=== PATIENT | male | born 1955 | race Caucasian/White ===

== ENCOUNTER → 2017-08-02 | Outpatient (CLI) | payer BC ==
[2017-08-02 19:22] LABS: BASOPHILS % (AUTO) 0 % (0-10); EOSINOPHILS # (AUTO) 0.3 10^3/uL (0.0-0.3); EOSINOPHILS % (AUTO) 5 % (0-10); LYMPHOCYTES # (AUTO) 2.3 X 10^3 (1.0-4.0); LYMPHOCYTES % (AUTO) 32 % (12-44); MEAN CORPUSCULAR HEMOGLOBIN 30 PG (25-34); MEAN CORPUSCULAR HGB CONC 35 G/DL (32-36); MEAN CORPUSCULAR VOLUME 87 FL (80-99); MEAN PLATELET VOLUME 9.8 FL (7.4-10.4); MONOCYTES # (AUTO) 0.7 X 10^3 (0.0-1.0); MONOCYTES % (AUTO) 10 % (0-12); NEUTROPHILS # (AUTO) 3.8 X 10^3 (1.8-7.8); NEUTROPHILS % (AUTO) 53 % (42-75); PLATELET COUNT 200 10^3/uL (130-400); RED BLOOD COUNT 4.86 10^6/uL (4.35-5.85); RED CELL DISTRIBUTION WIDTH 13.1 % (10.0-14.5); WHITE BLOOD COUNT 7.1 10^3/uL (4.3-11.0)
[2017-08-02 19:38] LABS: ALANINE AMINOTRANSFERASE 32 U/L (0-55); ALBUMIN 4.3 GM/DL (3.2-4.5); ANION GAP 10 MMOL/L (5-14); ASPARTATE AMINO TRANSFERASE 25 U/L (5-34); BILIRUBIN,TOTAL 0.3 MG/DL (0.1-1.0); BLOOD UREA NITROGEN 12 MG/DL (7-18); BUN/CREATININE RATIO 13; CALCIUM 9.2 MG/DL (8.5-10.1); CARBON DIOXIDE 26 MMOL/L (21-32); CHLORIDE 103 MMOL/L (98-107); CREATININE SERUM 0.96 MG/DL (0.60-1.30); GFR ESTIMATED > 60; GLUCOSE 105 MG/DL (70-105); POTASSIUM 3.8 MMOL/L (3.6-5.0); SODIUM 139 MMOL/L (135-145); TOTAL PROTEIN 7.4 GM/DL (6.4-8.2)
[2017-08-06 07:09] LABS: HIV AG AB SCREEN Non-Reactive (Non-Reactive)
== END ==
LOC: LAB 18:42
PROVIDERS: ATTEND Internal Medicine
DX: Z20.6 Contact with and (suspected) exposure to human immunodeficiency virus [HIV] (principal); Z20.828 Contact with and (suspected) exposure to other viral communicable diseases
CPT/HCPCS: 36415; 80053; 80074; 85025; 86703

== ENCOUNTER 2019-01-13 20:23 | Inpatient (IN) | payer BC ==
[~2019-01-13] VITALS: Ht 177.8 cm; Wt 112.0 kg
[2019-01-13] MEDS ORDERED: ASPIRIN 81 MG CHEW (CHILDREN'S ASA) PO ONE (20:30)
[2019-01-13 20:44] LABS: BASOPHILS % (AUTO) 1 % (0-10); EOSINOPHILS # (AUTO) 0.2 10^3/uL (0.0-0.3); EOSINOPHILS % (AUTO) 3 % (0-10); HEMATOCRIT 41 % (40-54); HEMOGLOBIN 14.5 G/DL (13.3-17.7); LYMPHOCYTES % (AUTO) 32 % (12-44); MEAN CORPUSCULAR HEMOGLOBIN 30 PG (25-34); MEAN CORPUSCULAR HGB CONC 35 G/DL (32-36); MEAN CORPUSCULAR VOLUME 86 FL (80-99); MEAN PLATELET VOLUME 9.7 FL (7.4-10.4); MONOCYTES # (AUTO) 0.5 X 10^3 (0.0-1.0); MONOCYTES % (AUTO) 8 % (0-12); NEUTROPHILS # (AUTO) 3.5 X 10^3 (1.8-7.8); NEUTROPHILS % (AUTO) 56 % (42-75); PLATELET COUNT 242 10^3/uL (130-400); RED CELL DISTRIBUTION WIDTH 13.5 % (10.0-14.5); WHITE BLOOD COUNT 6.3 10^3/uL (4.3-11.0)
--- NOTE | 2019-01-13 20:46 | Diagnostic Imaging Report ---
INDICATION: Chest pain COMPARISON STUDY: None FINDINGS: Frontal view of the chest demonstrates the lungs to be clear. The heart, mediastinum, pulmonary vascularity and visualized bony thorax are normal. IMPRESSION: Normal chest. Dictated by: Dictated on workstation # [id number]
--- NOTE | 2019-01-13 20:52 | ED Chest Pain ---
General Stated Complaint: CP Source: patient Exam Limitations: no limitations History of Present Illness Date Seen by Provider: Jan 13, 2019 Time Seen by Provider: 20:25 Initial Comments 63-year-old male who presents to the emergency room with complaints of left- sided substernal chest pain that started 1 hour prior to arrival. He did take 324mg baby aspirin at the onset of his chest pain. He reports she's had pain like this in the past and it reflux related. He is pain-free on arrival to the emergency room. He denies shortness of breath, nausea, vomiting. 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 (324 Baby ASA) Associated Symptoms: denies symptoms Allergies and Home Medications Allergies Coded Allergies: No Known Drug Allergies (Unverified , 01/13/19) Patient Home Medication List Home Medication List Reviewed: Yes Review of Systems Review of Systems Constitutional: see HPI; No chills, No fever Cardiovascular: See HPI, Chest Pain All Other Systems Reviewed Negative Unless Noted: Yes Past Cegvwpv-Lmvjbv-Gizcud Hx Past Med/Social Hx: Reviewed Nursing Past Med/Soc Hx Patient Social History Recent Foreign Travel: No Contact w/Someone Who Travel: No Family Medical History Reviewed Nursing Family Hx Physical Exam Vital Signs Vital Signs - First Documented 01/13/19 20:24 Temp 97.0 Pulse 90 Resp 20 B/P (MAP) 203/113 (143) Pulse Ox 97 O2 Delivery Room Air Capillary Refill : Height, Weight, BMI Height: '" Weight: lbs. oz. kg; BMI Method: General Appearance: No Apparent Distress, WD/WN HEENT: PERRL/EOMI, TMs Normal, Normal ENT Inspection, Pharynx Normal Neck: Full Range of Motion, Normal Inspection, Non Tender, Supple Respiratory: Chest Non Tender, Lungs Clear, Normal Breath Sounds, No Accessory Muscle Use, No Respiratory Distress Cardiovascular: Regular Rate, Rhythm, No Edema, No Gallop, No JVD, No Murmur, Normal Peripheral Pulses Gastrointestinal: Normal Bowel Sounds, No Organomegaly, No Pulsatile Mass, Non Tender Extremity: Normal Capillary Refill, No Pedal Edema Neurologic/Psychiatric: Alert, Oriented x3, Normal Mood/Affect Skin: Normal Color, Warm/Dry Progress/Results/Core Measures Results/Orders Lab Results Laboratory Tests Test 01/13/19 20:30 Range/Units White Blood Count 6.3 4.3-11.0 10^3/uL Red Blood Count 4.77 4.35-5.85 10^6/uL Hemoglobin 14.5 13.3-17.7 G/DL Hematocrit 41 40-54 % Mean Corpuscular Volume 86 80-99 FL Mean Corpuscular Hemoglobin 30 25-34 PG Mean Corpuscular Hemoglobin Concent 35 32-36 G/DL Red Cell Distribution Width 13.5 10.0-14.5 % Platelet Count 242 130-400 10^3/uL Mean Platelet Volume 9.7 7.4-10.4 FL Neutrophils (%) (Auto) 56 42-75 % Lymphocytes (%) (Auto) 32 12-44 % Monocytes (%) (Auto) 8 0-12 % Eosinophils (%) (Auto) 3 0-10 % Basophils (%) (Auto) 1 0-10 % Neutrophils # (Auto) 3.5 1.8-7.8 X 10^3 Lymphocytes # (Auto) 2.0 1.0-4.0 X 10^3 Monocytes # (Auto) 0.5 0.0-1.0 X 10^3 Eosinophils # (Auto) 0.2 0.0-0.3 10^3/uL Basophils # (Auto) 0.0 0.0-0.1 10^3/uL Prothrombin Time 12.6 12.2-14.7 SEC INR Comment 0.9 0.8-1.4 Activated Partial Thromboplast Time 20 L 24-35 SEC Sodium Level 141 135-145 MMOL/L Potassium Level 3.7 3.6-5.0 MMOL/L Chloride Level 106 98-107 MMOL/L Carbon Dioxide Level 22 21-32 MMOL/L Anion Gap 13 5-14 MMOL/L Blood Urea Nitrogen 15 7-18 MG/DL Creatinine 1.15 0.60-1.30 MG/DL Estimat Glomerular Filtration Rate > 60 BUN/Creatinine Ratio 13 Glucose Level 245 H 70-105 MG/DL Calcium Level 10.0 8.5-10.1 MG/DL Corrected Calcium 9.8 8.5-10.1 MG/DL Magnesium Level 2.3 1.8-2.4 MG/DL Total Bilirubin 0.3 0.1-1.0 MG/DL Aspartate Amino Transf (AST/SGOT) 33 5-34 U/L Alanine Aminotransferase (ALT/SGPT) 50 0-55 U/L Alkaline Phosphatase 49 40-136 U/L Myoglobin 39.7 10.0-92.0 NG/ML Troponin I 0.094 H <0.028 NG/ML B-Type Natriuretic Peptide 21.8 <100.0 PG/ML Total Protein 7.6 6.4-8.2 GM/DL Albumin 4.3 3.2-4.5 GM/DL My Orders Orders - JM BRAVO Cbc With Automated Diff (01/13/19 20:24) Magnesium (01/13/19 20:24) Chest 1 View, Ap/Pa Only (01/13/19:24) Ekg Tracing (01/13/19:24) Cardiac Profile 1 (01/13/19:) Comprehensive Metabolic Panel (01/13/19 20:24) Myoglobin Serum (01/13/19 20:24) Protime With Inr (01/13/19:24) Partial Thromboplastin Time (01/13/19:24) O2 (01/13/19 20:24) Monitor-Rhythm Ecg Trace Only (01/13/19 20:24) Lipid Panel (01/14/19 06:00) Ed Iv/Invasive Line Start (01/13/19 20:24) BNP (01/13/19 20:24) Aspirin Chewable Tablet (Baby Aspirin Ch (01/13/19 20:30) Lidocaine 2% Viscous 15 Ml (Xylocaine Vi (01/13/19 21:00) Antacid Suspension (Mylanta Suspension (01/13/19 21:00) Metoprolol Succinate (Xl) Tab (Toprol Xl (01/13/19 21:30) Clopidogrel Tablet (Plavix Tablet) (01/13/19 21:30) Enoxaparin Injection (Lovenox Injection) (01/13/19 22:00) Medications Given in ED Current Medications Medications Dose Ordered Sig/Charan Route Start Time Stop Time Status Last Admin Dose Admin Al Hydrox/Mg Hydrox/Simethicone 30 ml ONCE ONCE PO 01/13/19 21:00 01/13/19 21:01 DC 01/13/19 21:04 30 ML Clopidogrel Bisulfate 300 mg ONCE ONCE PO 01/13/19 21:30 01/13/19 21:31 DC 01/13/19 21:47 300 MG Lidocaine HCl 15 ml ONCE ONCE PO 01/13/19 21:00 01/13/19 21:01 DC 01/13/19 21:04 15 ML Metoprolol Succinate 200 mg ONCE ONCE PO 01/13/19 21:30 01/13/19 21:31 DC 01/13/19 21:47 200 MG Vital Signs/I&O 01/13/19 20:24 Temp 97.0 Pulse 90 Resp 20 B/P (MAP) 203/113 (143) Pulse Ox 97 O2 Delivery Room Air Progress Progress Note : Time: 21:13 Progress Note I have seen and evaluated the patient. I have informed him of laboratory and imaging findings and discussed these findings with Dr. Gutierrez at this time. He recommends admitting the patient to cardiac stepdown and giving Lovenox 1 mg/kg every 12 over dose. Plavix 300 now and 75 mg daily. Toprol-XL 200 mg by mouth now and 50 mg daily. Nothing by mouth status after breakfast tomorrow morning. 2152. Dr. Goodwin agrees to accept the patient to his services with a consult cardiology. Initial ECG Impression Date: Jan 13, 2019 Initial ECG Impression Time: 20:25 Initial ECG Rate: 93 Initial ECG Rhythm: Normal Sinus Initial ECG Intervals: Normal Initial ECG Intervals Dr. Vargas has reviewed the EKG and agrees with above. Initial ECG Comparisson: No Previous ECG Available Diagnostic Imaging Diagonstic Imaging: Xray Plain Films/CT/US/NM/MRI: chest Comments [facility] [place], [place] NAME: KIMBERLY EPPERSON [facility] REC#: [id number] PT STATUS: REG ER : 1955 PHYSICIAN: JM BRAVO ADMIT DATE: 01/13/19/ER Draft Date of Exam:01/13/19 CHEST 1 VIEW, AP/PA ONLY INDICATION: Chest pain COMPARISON STUDY: None FINDINGS: Frontal view of the chest demonstrates the lungs to be clear. The heart, mediastinum, pulmonary vascularity and visualized bony thorax are normal. IMPRESSION: Normal chest. Dictated on workstation # [id number] Dict: 01/13/192041 Trans: 01/13/192045 ABA [id number] Interpreted by: CHRISS LE MD Electronically signed by: Reviewed: Reviewed by Me Departure Communication (Admissions) Time/Spoke to Admitting Phy: 21:53 Christa Time/Spoke to Consulting Phy: 21:13 Dr. Gutierrez Impression Primary Impression: Non-STEMI (non-ST elevated myocardial infarction) Additional Impression: Chest pain Disposition: ADMITTED INPATIENT Condition: Stable/Unchanged Admissions Decision to Admit Reason: Admit from ER (General) Decision to Admit/Date: Jan 13, 2019 Time/Decision to Admit Time: 21:52 Departure-Patient Inst. Referrals: DERICK TA DO (PCP) Primary Care Physician SHARON TA DNP (Family) Primary Care Physician JM BRAVO Jan 13, 2019 20:52
[2019-01-13 20:56] LABS: INR 0.9 (0.8-1.4); PROTHROMBIN TIME PATIENT 12.6 SEC (12.2-14.7)
[2019-01-13] MEDS ORDERED: LIDOCAINE 2% VISCOUS 15 ML UDC PO ONE (21:00)
[2019-01-13] MEDS ORDERED: ANTACID SUSP 30 ML UDC (MYLANTA) PO ONE (21:00)
[2019-01-13 21:05] LABS: ALANINE AMINOTRANSFERASE 50 U/L (0-55); ALBUMIN 4.3 GM/DL (3.2-4.5); ALKALINE PHOSPHATASE 49 U/L (40-136); BILIRUBIN,TOTAL 0.3 MG/DL (0.1-1.0); BUN/CREATININE RATIO 13; CARBON DIOXIDE 22 MMOL/L (21-32); CHLORIDE 106 MMOL/L (98-107); CREATININE SERUM 1.15 MG/DL (0.60-1.30); GFR ESTIMATED > 60; GLUCOSE 245 MG/DL (70-105); MAGNESIUM 2.3 MG/DL (1.8-2.4); POTASSIUM 3.7 MMOL/L (3.6-5.0); SODIUM 141 MMOL/L (135-145); TOTAL PROTEIN 7.6 GM/DL (6.4-8.2)
--- NOTE | 2019-01-13 21:18 | NUR ---
report given to BLANCA Hilton
--- NOTE | 2019-01-13 21:20 | NUR ---
REPORT RECIEVED FROM BLANCA LOERA
[2019-01-13] MEDS ORDERED: meTOprolol SUCCINATE 100 MG (TOPROL XL) TAB PO ONE (21:30)
[2019-01-13] MEDS ORDERED: CLOPIDOGREL 300 MG (PLAVIX) TABLET PO ONE (21:30)
[2019-01-13] MEDS ORDERED: ENOXAPARIN 60 MG/0.6 ML (LOVENOX) SYR SC ONE (22:00)
[2019-01-13 23:00] VITALS: BP_SYST 147; BP_SYST 158; BP_DIAS 100; BP_DIAS 88
[2019-01-13 23:15] VITALS: BP 143/109
[2019-01-13] MEDS ORDERED: morphine INJ 4 MG/ML 1 ML (VIAL/SYRINGE) IV PRN (23:15)
[2019-01-13] MEDS ORDERED: NITROGLYCERIN 0.4 MG SL TABS BTL 25'S SL PRN (23:15)
[2019-01-13] MEDS ORDERED: ONDANSETRON 4 MG/2 ML (SDV) Z0FRAN IV PRN (23:15)
[2019-01-13] MEDS: ENOXAPARIN 60 MG/0.6 ML (LOVENOX) SYR SC SCH (23:22)
[2019-01-13 23:30] VITALS: BP 154/89
[2019-01-13 23:45] VITALS: BP 152/86
[2019-01-14] VITALS (13 sets, daily range): BP systolic 139–165; BP diastolic 80–106
[2019-01-14 02:51] LABS: BASOPHILS % (AUTO) 1 % (0-10); EOSINOPHILS # (AUTO) 0.1 10^3/uL (0.0-0.3); EOSINOPHILS % (AUTO) 2 % (0-10); HEMATOCRIT 39 % (40-54); HEMOGLOBIN 13.5 G/DL (13.3-17.7); LYMPHOCYTES # (AUTO) 2.9 X 10^3 (1.0-4.0); LYMPHOCYTES % (AUTO) 45 % (12-44); MEAN CORPUSCULAR HEMOGLOBIN 31 PG (25-34); MEAN CORPUSCULAR HGB CONC 35 G/DL (32-36); MEAN CORPUSCULAR VOLUME 87 FL (80-99); MEAN PLATELET VOLUME 9.7 FL (7.4-10.4); MONOCYTES # (AUTO) 0.6 X 10^3 (0.0-1.0); MONOCYTES % (AUTO) 9 % (0-12); NEUTROPHILS # (AUTO) 2.8 X 10^3 (1.8-7.8); NEUTROPHILS % (AUTO) 44 % (42-75); PLATELET COUNT 227 10^3/uL (130-400); RED CELL DISTRIBUTION WIDTH 13.5 % (10.0-14.5); WHITE BLOOD COUNT 6.4 10^3/uL (4.3-11.0)
[2019-01-14 03:11] LABS: ALANINE AMINOTRANSFERASE 44 U/L (0-55); ALKALINE PHOSPHATASE 46 U/L (40-136); BILIRUBIN,TOTAL 0.3 MG/DL (0.1-1.0); BUN/CREATININE RATIO 15; CALCIUM 9.8 MG/DL (8.5-10.1); CARBON DIOXIDE 24 MMOL/L (21-32); CHLORIDE 106 MMOL/L (98-107); CHOLESTEROL 208 MG/DL (< 200); CREATININE SERUM 0.98 MG/DL (0.60-1.30); GFR ESTIMATED > 60; GLUCOSE 174 MG/DL (70-105); HDL CHOLESTEROL 32 MG/DL (40-60); POTASSIUM 3.9 MMOL/L (3.6-5.0); SODIUM 140 MMOL/L (135-145); TOTAL PROTEIN 6.9 GM/DL (6.4-8.2); TRIGLYCERIDES 493 MG/DL (<150); VLDL CHOLESTEROL 99 MG/DL (5-40)
[2019-01-14] MEDS ORDERED: MIDAZOLAM 5 MG/5 ML (VERSED) VIAL ONE (07:48)
[2019-01-14] MEDS ORDERED: NS IV 1000 ML 1,000 ML IV STA (07:48)
[2019-01-14] MEDS ORDERED: NS IV 1000 ML 0 ML ONE (07:48)
[2019-01-14] MEDS ORDERED: LIDOCAINE 1% INJ 20 ML 20 ML VIAL ONE ×2 (07:48)
[2019-01-14] MEDS ORDERED: HEParin 1000 UNIT/ML (10ML VIAL) FOR BOLUS ONE ×2 (07:48)
[2019-01-14] MEDS ORDERED: fentaNYL INJECTION 100 MCG/2 ML AMP ONE (07:48)
[2019-01-14] MEDS ORDERED: NS IV 1000 ML 2,000 ML ONE (07:49)
--- NOTE | 2019-01-14 07:53 | Consultation-Cardiology ---
HPI-Cardiology Cardiology Consultation Date of Consultation 01/14/19 Date of Admission Time Seen by Provider: 07:49 Indication: chest pain HPI 63 years old gentleman with history of diabetes mellitus, strong family history of heart disease, started having chest pain about a week ago waxing and waning, yesterday reported that the pain became more significant, had retrosternal pain radiating to the left side of his chest, took aspirin and came to the emergency room by the time arrived to the emergency room he was chest pain-free. Continue to be chest pain-free. Had elevation in troponin upon my evaluation he reported some increasing shortness of breath on exertion. No palpitation, no syncope or near syncopal episodes. No claudications. Home Medications & Allergies Allergies: Coded Allergies: No Known Drug Allergies (Unverified , 01/13/19) Home Medication List Reviewed: Yes FLJ-Mvrdme-Gzzuab Hx Patient Social History Marital Status: Employed/Student: employed Alcohol Use: Rarely Uses Smoking Status: Never a Smoker Recent Foreign Travel: No Recent Infectious Disease Expo: No Past Medical History past medical history as described below Family Medical History Family History: Cardiovascular disease 19 MOTHER, , Age:76, Onset:60 years & older FH: COPD (chronic obstructive pulmonary disease) 19 FATHER, , Age:78, Onset:60 years & older 19 MOTHER, , Age:76, Onset:60 years & older Review of Systems Constitutional: no symptoms reported, see HPI EENTM: see HPI, no symptoms reported Respiratory: see HPI; No cough; dyspnea on exertion; No hemoptysis, No orthopnea, No phlegm, No short of breath, No stridor, No wheezing, No other Cardiovascular: see HPI, chest pain; No edema, No Hx of Intervention, No palpitations, No syncope, No vascular heart diseas, No other Gastrointestinal: no symptoms reported, see HPI Genitourinary: no symptoms reported, see HPI Musculoskeletal: no symptoms reported, see HPI Skin: no symptoms reported, see HPI Psychiatric/Neurological: No Symptoms Reported, See HPI Reviewed Test Results Reviewed Test Results Lab Laboratory Tests Test 01/13/19 20:30 01/14/19 02:35 Range/Units White Blood Count 6.3 6.4 4.3-11.0 10^3/uL Red Blood Count 4.77 4.43 4.35-5.85 10^6/uL Hemoglobin 14.5 13.5 13.3-17.7 G/DL Hematocrit 41 39 L 40-54 % Mean Corpuscular Volume 86 87 80-99 FL Mean Corpuscular Hemoglobin 30 31 25-34 PG Mean Corpuscular Hemoglobin Concent 35 35 32-36 G/DL Red Cell Distribution Width 13.5 13.5 10.0-14.5 % Platelet Count 242 227 130-400 10^3/uL Mean Platelet Volume 9.7 9.7 7.4-10.4 FL Neutrophils (%) (Auto) 56 44 42-75 % Lymphocytes (%) (Auto) 32 45 H 12-44 % Monocytes (%) (Auto) 8 9 0-12 % Eosinophils (%) (Auto) 3 2 0-10 % Basophils (%) (Auto) 1 1 0-10 % Neutrophils # (Auto) 3.5 2.8 1.8-7.8 X 10^3 Lymphocytes # (Auto) 2.0 2.9 1.0-4.0 X 10^3 Monocytes # (Auto) 0.5 0.6 0.0-1.0 X 10^3 Eosinophils # (Auto) 0.2 0.1 0.0-0.3 10^3/uL Basophils # (Auto) 0.0 0.0 0.0-0.1 10^3/uL Prothrombin Time 12.6 12.2-14.7 SEC INR Comment 0.9 0.8-1.4 Activated Partial Thromboplast Time 20 L 24-35 SEC Sodium Level 141 140 135-145 MMOL/L Potassium Level 3.7 3.9 3.6-5.0 MMOL/L Chloride Level 106 106 98-107 MMOL/L Carbon Dioxide Level 22 24 21-32 MMOL/L Anion Gap 13 10 5-14 MMOL/L Blood Urea Nitrogen 15 15 7-18 MG/DL Creatinine 1.15 0.98 0.60-1.30 MG/DL Estimat Glomerular Filtration Rate > 60 > 60 BUN/Creatinine Ratio 13 15 Glucose Level 245 H 174 H 70-105 MG/DL Calcium Level 10.0 9.8 8.5-10.1 MG/DL Corrected Calcium 9.8 9.8 8.5-10.1 MG/DL Magnesium Level 2.3 1.8-2.4 MG/DL Total Bilirubin 0.3 0.3 0.1-1.0 MG/DL Aspartate Amino Transf (AST/SGOT) 33 27 5-34 U/L Alanine Aminotransferase (ALT/SGPT) 50 44 0-55 U/L Alkaline Phosphatase 49 46 40-136 U/L Myoglobin 39.7 10.0-92.0 NG/ML Troponin I 0.094 H 0.140 H <0.028 NG/ML B-Type Natriuretic Peptide 21.8 <100.0 PG/ML Total Protein 7.6 6.9 6.4-8.2 GM/DL Albumin 4.3 4.0 3.2-4.5 GM/DL Triglycerides Level 493 H <150 MG/DL Cholesterol Level 208 H < 200 MG/DL LDL Cholesterol Direct 130 H 1-129 MG/DL VLDL Cholesterol 99 H 5-40 MG/DL HDL Cholesterol 32 L 40-60 MG/DL Physical Exam Vital Signs Vital Signs - First Documented 01/13/19 20:24 Temp 97.0 Pulse 90 Resp 20 B/P (MAP) 203/113 (143) Pulse Ox 97 O2 Delivery Room Air Capillary Refill : Less Than 3 Seconds Height, Weight, BMI Height: 5'10.00" Weight: 247lbs. 0.0oz. 112.777859ne; 35.5 BMI Method:Stated General Appearance: No Apparent Distress, WD/WN Eyes: Bilateral Eye Normal Inspection, Bilateral Eye PERRL, Bilateral Eye EOMI HEENT: PERRL/EOMI, TMs Normal, Normal ENT Inspection, Pharynx Normal Neck: Full Range of Motion, Normal Inspection, Non Tender, Supple, Carotid Bruit Respiratory: Chest Non Tender, Lungs Clear, Normal Breath Sounds, No Accessory Muscle Use, No Respiratory Distress Cardiovascular: Regular Rate, Rhythm, No Edema, No Gallop, No JVD, No Murmur, Normal Peripheral Pulses Gastrointestinal: Normal Bowel Sounds, No Organomegaly, No Pulsatile Mass, Non Tender, Soft Back: Normal Inspection, No CVA Tenderness, No Vertebral Tenderness Extremity: Normal Capillary Refill, Normal Inspection, Normal Range of Motion, Non Tender, No Calf Tenderness, No Pedal Edema Neurologic/Psychiatric: Alert, Oriented x3, No Motor/Sensory Deficits, Normal Mood/Affect Skin: Normal Color, Warm/Dry Lymphatic: No Adenopathy A/P-Cardiology Admission Diagnosis Non-ST elevation myocardial infarction Dyspnea on exertion Hyperlipidemia Diabetes mellitus Assessment/Plan Unstable angina/non-ST elevation myocardial infarction, currently chest pain- free, had elevation in troponin level. Planning to proceed with cardiac catheterization possible PTCA Shortness of breath, angina equivalent, has been having worsening dyspnea over the past week. Continue to monitor Hyperlipidemia, patient will be starting on statin after intervention Diabetes mellitus, started on Victoza, managed by primary care physician Strong family history of heart disease Obesity, BMI 35, we discussed weight loss and exercise Clinical Quality Measures AMI/AHF: ASA po Prior to arrival: Yes (324 Baby ASA) DVT/VTE Risk/Contraindication: Risk Factor Score Per Nursin RFS Level Per Nursing on Admit: 3=High CHYNA PEACE MD Jan 14, 2019 07:53
--- NOTE | 2019-01-14 07:53 | Cardiac Procedure Note-CS/ASA ---
Pre-Procedure Note Pre-Op Procedure Note H&P Reviewed The H&P was reviewed, patient examined and no changes noted. Date H&P Reviewed: Jan 14, 2019 Time H&P Reviewed: 07:53 Conscious Sedation Pre-Proced Time 07:53 ASA Score 3 For ASA 3 and 4: Consider anesthesia and medical clearance. Also, for patients with a history of failed moderate sedation consider anesthesia. Airway Lungs Heart ASA score ASA 1: a normal healthy patient ASA 2: a patient with a mild systemic disease (mid diabetes, controlled hypertension, obesity x ASA 3: a patient with a severe systemic disease that limits activity (angina , COPD, prior Myocardial infarction) ASA 4: a patient with an incapacitating disease that is a constant threat to life (CHF, renal failure) ASA 5: a moribund patient not expected to survive 24 hrs. (ruptured aneurysm) ASA 6: a declared brain- patient whose organs are being harvested. For emergent operations, add the letter E after the classification Mallampati Classification Grade 3 Sedation Plan Analgesia, Amnesia, Plan communicated to team members, Discussed options with patient/fam, Discussed risks with patient/fam The patient is an appropriate candidate to undergo the planned procedure, sedation, and anesthesia. The patient immediately re-assessed prior to indication. CHYNA PEACE MD Jan 14, 2019 07:53
[2019-01-14] MEDS ORDERED: CLOPIDOGREL 75 MG (PLAVIX) TABLET PO SCH (09:00)
[2019-01-14] MEDS ORDERED: meTOproloL SUCCINATE 50 MG (TOPROL XL) TAB PO SCH (09:00)
--- NOTE | 2019-01-14 09:06 | Cardiac Cath Report ---
Cardiac Cath Report Physician (s)/Computer System Validation Specialist (s) Physician CHYNA PEACE MD Pre-Procedure Diagnosis Pre-Procedure Diagnosis: non-ST elevation myocardial infarction Post-Procedure Note Procedure Start Date: Jan 14, 2019 Name of Procedure: left heart catheterization Left ventriculogram Aortic arch angiogram Findings/Procedure Note PROCEDURE NOTE: After explaining the procedure to the patient, all pros and cons were explained , all questions were answered. The patient signed the consent and then he was placed on the cardiac catheterization laboratory. Groin was prepped SL fashion local anesthesia was used. Sheath placed in the right femoral artery. Gonzalo right and left catheter were used to access the coronary system. Pigtail was used to access the left ventricular cavity. Left ventriculogram was done Aortic arch angiogram was done At the end of the procedure the sheath was removed. Closure device was used FINDINGS: Hemodynamics LV 131/18, end-diastolic pressure of 18 Aorta 132/75 mean of 101 ANATOMY: Left Main is free of obstructive disease Left Anterior Descending has mild ectasia proximally with slow flow in the LAD Left Circumflex has ectasia proximally with 40-50 percent stenosis at the midportion, slow flow Right Coronory Artery has diffuse ectasia with slow flow in the right coronary system, small vessel disease LV Gram was done showing normal left ventricular size and systolic function estimated ejection fraction 60 percent Aorta evaluation done to evaluate the aortic arch, I had some difficulties advancing the wire through the arch, evaluation showed normal aortic arch, no dissection or aneurysm, no ectasia, origin of the innominate artery, left carotid and left subclavian artery showed some tortuosity with no significant obstructive disease CONCLUSION: 1. Diffuse coronary ectasia more pronounced in the right coronary system, slow flow diffusely due to small vessel disease 2. 40-50 percent mid to distal circumflex artery stenosis nonobstructive disease 3. Normal left ventricular size and systolic function estimated ejection fraction 60 percent 4. Normal aortic arch and great vessels of the neck DISCUSSION AND RECOMMENDATION: I will maximize medical therapy and evaluate tolerance and response Anesthesia Type: Conscious Sedation Estimated blood loss (mL): 15 ml Contrast Amount: 62 ml Total Radiation Dose: 862 mGy Post-Procedure Diagnosis Post-operative diagnosis: Non-ST elevation myocardial infarction Unstable angina Coronary artery disease Hyperlipidemia CHYNA PEACE MD Jan 14, 2019 09:06
[2019-01-14] MEDS ORDERED: NS IV 1000 ML 1,000 ML IV SCH (09:07)
[2019-01-14] MEDS ORDERED: PATIENT MAY USE OWN MEDS, ALL PO SCH (09:15)
[2019-01-14] MEDS ORDERED: LISD40CA3 PO (09:19)
[2019-01-14] MEDS ORDERED: ALBU2.5V4 NEB (09:19)
[2019-01-14] MEDS ORDERED: RT-ALBUINH INH (09:19)
[2019-01-14] MEDS ORDERED: OMEP20TA33 PO (09:26)
[2019-01-14] MEDS ORDERED: EPHE1TAB PO (09:26)
[2019-01-14] MEDS ORDERED: LIRA0.6P SQ (09:26)
--- NOTE | 2019-01-14 10:53 | Short Stay Summary-Hospitalist ---
History of Present Illness HPI/Chief Complaint Chief complaint: Chest Pain HPI: This is a 63yoWM clinic pt of Dr. Ortiz who presents with escalating chest pain at high risk for coronary artery disease so he was placed in observation, underwent cardiac catheterization by Dr. Campo today and that revealed slowed coronary vessel blood flow but only small vessel disease. I did note few risk factors for PREETHI and he's never had a sleep study so that was counseled to do as an outpatient. Source: patient, family Exam Limitations: no limitations Date Seen 01/14/19 Time Seen by a Provider: 10:00 Attending Physician Chris Goodwin MD PCP Ricardo Ortiz DO Referring Physician Date of Admission Jan 13, 2019 at 21:54 Home Medications & Allergies Home Medications Reviewed patient Home Medication Reconciliation performed by pharmacy medication reconciliations wireless field technician and/or nursing. Patients Allergies have been reviewed. 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) Alcohol Use: Rarely Uses Smoking Status: Never a Smoker Recent Foreign Travel: No Contact w/other who traveled: No Recent Infectious Disease Expo: No Past Medical History Gastrointestinal: Gastroesophageal Reflux Endocrine: Diabetes, Non-Insulin dep Family History Reviewed Nursing Family Hx Cardiovascular disease 19 MOTHER, , Age:76, Onset:60 years & older FH: COPD (chronic obstructive pulmonary disease) 19 FATHER, , Age:78, Onset:60 years & older 19 MOTHER, , Age:76, Onset:60 years & older Review of Systems Constitutional: see HPI EENTM: no symptoms reported Respiratory: no symptoms reported Cardiovascular: chest pain Gastrointestinal: no symptoms reported Genitourinary: no symptoms reported Musculoskeletal: no symptoms reported Skin: no symptoms reported Psychiatric/Neurological: No Symptoms Reported All Other Systems Reviewed Negative Unless Noted: Yes Physical Exam Physical Exam Vital Signs Vital Signs - First Documented Capillary Refill : Less Than 3 Seconds Height, Weight, BMI Height: 5'10.00" Weight: 247lbs. 0.0oz. [id number]; 35.5 BMI Method:Stated General Appearance: No Apparent Distress, WD/WN Eyes: Bilateral Eye Normal Inspection, Bilateral Eye PERRL, Bilateral Eye EOMI HEENT: PERRL/EOMI, TMs Normal, Normal ENT Inspection, Pharynx Normal Neck: Full Range of Motion, Normal Inspection, Non Tender, Supple, Carotid Bruit Respiratory: Chest Non Tender, Lungs Clear, Normal Breath Sounds, No Accessory Muscle Use, No Respiratory Distress Cardiovascular: Regular Rate, Rhythm, No Edema, No Gallop, No JVD, No Murmur, Normal Peripheral Pulses Gastrointestinal: Normal Bowel Sounds, No Organomegaly, No Pulsatile Mass, Non Tender, Soft Back: Normal Inspection, No CVA Tenderness, No Vertebral Tenderness Extremity: Normal Capillary Refill, Normal Inspection, Normal Range of Motion, Non Tender, No Calf Tenderness, No Pedal Edema Neurologic/Psychiatric: Alert, Oriented x3, No Motor/Sensory Deficits, Normal Mood/Affect Skin: Normal Color, Warm/Dry Lymphatic: No Adenopathy Results Results/Procedures Labs Laboratory Tests 01/13/19 20:30 01/14/19 02:35 Patient resulted labs reviewed. Short Stay Diagnosis Discharge Diagnosis-Short Stay Admission Diagnosis Chest pain HTN Presumed PREETHI DM GERD Final Discharge Diagnosis Chest pain HTN Presumed PREETHI DM GERD Conclusion Plan Plan: Cardiology is appreciated Diagnosis/Problems Diagnosis/Problems (1) Chest pain Status: Acute Qualifiers: Qualified Codes: R07.2 - Precordial pain (2) Small vessel coronary artery disease Status: Chronic (3) S/P cardiac cath Status: Acute (4) GERD (gastroesophageal reflux disease) Status: Chronic Qualifiers: Qualified Codes: K21.9 - Gastro-esophageal reflux disease without esophagitis (5) PREETHI (obstructive sleep apnea) Status: Chronic (6) Diabetes Status: Chronic Qualifiers: Qualified Codes: E11.9 - Type 2 diabetes mellitus without complications Clinical Quality Measures AMI/AHF: ASA po Prior to arrival: Yes (324 Baby ASA) DVT/VTE Risk/Contraindication: Risk Factor Score Per Nursin RFS Level Per Nursing on Admit: 3=High MORENA LUNDY DO Jan 14, 2019 10:53
[2019-01-14] MEDS ORDERED: ATOR80TA76 PO (11:45)
[2019-01-14] MEDS ORDERED: ASPI-983 PO (11:45)
[2019-01-14] MEDS ORDERED: OMG1KC PO (11:45)
[2019-01-14] MEDS ORDERED: METO-387 PO (11:45)
--- NOTE | 2019-01-14 11:47 | Discharge Inst-Post CATH ---
Discharge Inst-CATH/EP Post Cardiac Cath/EP D/C Inst Follow Up/Plan Appointment with Dr. Tyson's office in 2-4 weeks CARDIAC CATH DISCHARGE INSTRUCTIONS *Hold Metformin for 48 hours post heart cath. ACTIVITY * Go Home directly and rest. * Limit activity of the leg (or wrist if it was used) for 7 days including aerobics, swimming, jogging, bicycling, etc. * Restrict stair-climbing for 7 days if possible, if not, climb up with your non -cath leg, then bring together on the same step. * Avoid lifting, pushing, pulling or excessive movement of the affected extremity for 7 days. * Customary sexual activity may be resumed after 2 days-use caution not to use a position that strains or causes pain to the affected extremity. * No driving for 24 hours. * NO SMOKING. * Avoid straining for bowel movements for 7 days. * Gentle walking on level ground is allowed. * Returning to work will depend on the type of procedure and the results. Your doctor will discuss this with you. CALL YOUR DOCTOR FOR ANY OF THE FOLLOWING: *If bleeding from the puncture site occurs- Apply gentle pressure to site with clean cloth and call your doctor or EMS. * If a knot or lump forms under the skin, increases in size, or causes pain. * If bruising appears to be worsening or moving further down your leg instead of disappearing. * Temperature above 101 F. CARE OF YOUR GROIN INCISION; * Bruising or purple discoloration of the skin near the puncture site is common. * You may shower only, no bathtub bathing for 5 days. Be careful to avoid slipping as your leg may feel stiff. * If a closure device was used on your femoral artery, please see the attached guide regarding care of the device and your leg. * Leave the dressing on, until removed by office staff. CARE OF YOUR WRIST INCISION; * Bruising or purple discoloration of the skin near the puncture site is common. * You may shower. * DO NOT submerge wrist. * Leave dressing on, until removed by office staff.. CHYNA TYSON MD Jan 14, 2019 11:47
[2019-01-14] MEDS: ENOXAPARIN 60 MG/0.6 ML (LOVENOX) SYR SC SCH (12:30)
[2019-01-14] MEDS ORDERED: OMEGA 3 (FISH OIL) 1000 MG CAP PO SCH (17:00)
[2019-01-14] MEDS ORDERED: ATORVASTATIN 80 MG (LIPITOR) TABLET PO SCH (21:00)
[2019-01-15] MEDS ORDERED: PANTOPRAZOLE 40 MG (PROTONIX) TAB PO SCH (09:00)
[2019-01-15] MEDS ORDERED: ASPIRIN E.C. 81 MG (ECOTRIN) TAB PO SCH (09:00)
--- NOTE | 2019-01-19 08:22 | Physician Query Clarification ---
PQ-Conflicting Diagnosis Admission/Discharge Admission Date: Jan 13, 2019 at 21:54 Discharge Date: Jan 14, 2019 at 13:30 The medical record reflects the following clinical scenario: History/Risk Factors: Substernal chest pain, SOB, family hx of CAD Clinical Findings: Troponin .094 Treatment: heart cath Question: Do you agree with the impression of the NSTEMI per Dr. Tyson. Please document a response below. PHYSICIAN RESPONSE Do you agree w/Consulting Dx?: Yes In responding to this query, please exercise your independent professional judgment. The purpose of this communication is to more accurately reflect the complexity of your patients condition. The fact that a question is asked does not imply that any particular answer is desired or expected. Thank you for your timely response to this clarification. Requestors name: [ ] Phone # [ ] THIS PHYSICIAN QUERY FORM IS A PERMANENT PART OF THE MEDICAL RECORD MARIANO PAZ Jan 19, 2019 08:22 MORENA LUNDY DO Jan 19, 2019 08:49
== END 2019-01-14 13:30 | disposition home or self-care (01) | DRG 282 ==
LOC: EDUNIT# 20:23 → ER 20:23 → ICU 21:54
PROVIDERS: ADMIT Internal Medicine; ATTEND Internal Medicine
PROC: 4A023N7 Measurement of Cardiac Sampling and Pressure, Left Heart, Percutaneous Approach (ICD-10-PCS; principal; 2019-01-14)
PROC: B2111ZZ Fluoroscopy of Multiple Coronary Arteries using Low Osmolar Contrast (ICD-10-PCS; 2019-01-14)
PROC: B2151ZZ Fluoroscopy of Left Heart using Low Osmolar Contrast (ICD-10-PCS; 2019-01-14)
PROC: B3101ZZ Fluoroscopy of Thoracic Aorta using Low Osmolar Contrast (ICD-10-PCS; 2019-01-14)
DX: I21.4 Non-ST elevation (NSTEMI) myocardial infarction (principal); I25.110 Atherosclerotic heart disease of native coronary artery with unstable angina pectoris; I25.41 Coronary artery aneurysm; E11.9 Type 2 diabetes mellitus without complications; Z82.49 Family history of ischemic heart disease and other diseases of the circulatory system; E78.5 Hyperlipidemia, unspecified; E66.9 Obesity, unspecified; Z68.35 Body mass index [BMI] 35.0-35.9, adult; K21.9 Gastro-esophageal reflux disease without esophagitis; G47.33 Obstructive sleep apnea (adult) (pediatric)
CPT/HCPCS: 36221; 36415; 71045; 80053; 80061; 83735; 83874; 83880; 84484; 85025; 85610; 85730; 93005; 93041; 93458; 96372

== ENCOUNTER 2021-10-13 11:19 | Outpatient (CLI) | payer OTHER ==
[~2021-10-13] VITALS: Ht 177.8 cm; Wt 100.0 kg
[2021-10-13 11:00] VITALS: BP 122/74
[~2021-10-13 11:19] MED LIST: ALBU2.5V4 NEB; ASPI-1238 PO; ATOR80TA76 PO; EPHE1TAB PO; LIRA0.6P SQ; LISD40CA3 PO; MTP25TSR PO; OMEP20TA33 PO; OMG1KC PO; RT-ALBUINH INH
[2021-10-13] MEDS ORDERED: ACETAMINOPHEN 500 MG TAB (TYLENOL) PO PRN (12:00)
[2021-10-13] MEDS ORDERED: BAMLANIVIMAB 700 MG/ETESEVIMAB 1,400 MG IN NS IV ONE ×3 (12:00)
[2021-10-13] MEDS ORDERED: ONDANSETRON 4 MG/2 ML (SDV) Z0FRAN IV PRN (12:00)
[2021-10-13] MEDS ORDERED: EPINEPHrine INJECTION 1 MG/ML AMP IM PRN (12:00)
[2021-10-13] MEDS ORDERED: diphenhydrAMINE 50 MG/ML INJ (BENADRYL) IV PRN (12:00)
[2021-10-13 13:02] VITALS: BP 113/66
== END 2021-10-13 13:02 ==
LOC: INFUSION 11:19
PROVIDERS: ATTEND Nurse Practitioner Family
DX: U07.1 COVID-19 (principal)

== ENCOUNTER → 2022-01-22 | Outpatient (CLI) | payer OTHER ==
[2022-01-22 15:06] LABS: BASOPHILS % (AUTO) 0 % (0-10); EOSINOPHILS % (AUTO) 0 % (0-10); HEMATOCRIT 46 % (40-54); HEMOGLOBIN 15.3 g/dL (13.3-17.7); LYMPHOCYTES # (AUTO) 0.8 10^3/uL (1.0-4.0); LYMPHOCYTES % (AUTO) 16 % (12-44); MEAN CORPUSCULAR HEMOGLOBIN 29 pg (25-34); MEAN CORPUSCULAR HGB CONC 33 g/dL (32-36); MEAN CORPUSCULAR VOLUME 89 fL (80-99); MONOCYTES # (AUTO) 0.4 10^3/uL (0.0-1.0); MONOCYTES % (AUTO) 8 % (0-12); NEUTROPHILS # (AUTO) 3.8 10^3/uL (1.8-7.8); NEUTROPHILS % (AUTO) 76 % (42-75); PLATELET COUNT 165 10^3/uL (130-400); WHITE BLOOD COUNT 5.1 10^3/uL (4.3-11.0)
--- NOTE | 2022-01-22 15:11 | Diagnostic Imaging Report ---
Indication: Cough. Time of Exam: 3:02 PM Correlation is made with prior chest from 01/13/2019. Heart size is normal. Patient does have airspace infiltrate in the left upper lobe consistent with pneumonia. Right lung is clear. No effusion or pneumothorax is identified. IMPRESSION: Left upper lobe pneumonia. Report given to LEATHA June at 3:11 PM 01/22/2022/yadira Dictated by: Dictated on workstation # [id number]
[2022-01-22 15:15] LABS: ALBUMIN 4.3 GM/DL (3.2-4.5); POTASSIUM 4.1 MMOL/L (3.6-5.0)
[2022-01-22 15:17] LABS: CALCIUM 9.6 MG/DL (8.5-10.1)
[2022-01-22 15:18] LABS: TOTAL PROTEIN 7.8 GM/DL (6.4-8.2)
[2022-01-22 15:20] LABS: BILIRUBIN,TOTAL 0.8 MG/DL (0.1-1.0)
[2022-01-22 15:22] LABS: CREATININE SERUM 1.1 MG/DL (0.60-1.30)
== END ==
LOC: RAD 14:35
PROVIDERS: ATTEND Nurse Practitioner Family
DX: J15.9 Unspecified bacterial pneumonia (principal)
CPT/HCPCS: 36415; 71046; 80053; 85025

== ENCOUNTER 2022-10-03 08:45 | Outpatient (CLI) | payer OTHER ==
[~2022-10-03] VITALS: Ht 162.6 cm; Wt 104.5 kg
[~2022-10-03 08:45] MED LIST changes: +ALBU8.5H6 INH; -RT-ALBUINH INH
[2022-10-09] MEDS ORDERED: ATOR40TA70 PO (13:03)
[2022-10-09] MEDS ORDERED: LOSA50TA63 PO (13:03)
[2022-10-09] MEDS ORDERED: DEXL60CA PO (13:03)
[2022-10-09] MEDS ORDERED: DOXY100C5 PO (13:03)
[2022-10-09] MEDS ORDERED: TIRZ7.5P SQ (13:03)
[2022-10-09] MEDS ORDERED: DAPA10TA PO (13:03)
== END 2022-10-10 10:11 | disposition home or self-care (01) ==
LOC: PREOP 08:45
PROVIDERS: ATTEND Specialist
DX: Z01.818 Encounter for other preprocedural examination (principal)

== ENCOUNTER 2022-10-12 09:35 | Day surgery (SDC) | payer OTHER ==
[~2022-10-12] VITALS: Ht 162.6 cm; Wt 104.5 kg
[~2022-10-12 09:35] MED LIST changes: +ATOR40TA70 PO; +DAPA10TA PO; +DEXL60CA PO; +DOXY100C5 PO; +LOSA50TA63 PO; +TIRZ7.5P SQ
[2022-10-12] MEDS: TETRACAINE 0.5% OPHTH SOLN 4 ML BTL (SINGLE DOSE ONLY) OU PRN ×4 (09:55→10:13)
[2022-10-12] MEDS ORDERED: POVIDONE (BETADINE) OPHTH SOLN 5% 30 ML OP ONE (10:00)
[2022-10-12] MEDS ORDERED: TIMOLOL 0.5% (CATARACTS) 0.3 ML BTL OU PRN (10:00)
[2022-10-12] MEDS ORDERED: MOXIFLOXACIN OPHTH SOLN 5 MG/ML 0.3 ML SYRINGE OP ONE (10:00)
[2022-10-12] MEDS: TROPICAMIDE 1% OPH SOLN (MYDRIACYL) 15 ML BTL OP SCH ×3 (10:02→10:13)
[2022-10-12] MEDS: PHENYLEPHRINE 10% OPHTH (NEO-SYN) 5 ML BTL OU SCH ×3 (10:02→10:13)
[2022-10-12 10:05] VITALS: BP 141/85
--- NOTE | 2022-10-12 10:41 | Ophthalmologist Pre-Op Note ---
Pre-Operative Progress Note H&P Reviewed The H&P was reviewed, patient examined and no changes noted. Date H&P Reviewed: Oct 12, 2022 Time H&P Reviewed: 10:40 Pre-Op Dx Cataract, Left Eye HALEY NUNEZ MD Oct 12, 2022 10:40
[2022-10-12] MEDS ORDERED: MIDAZOLAM 2 MG/2 ML (VERSED) VIAL ONE (10:46)
--- NOTE | 2022-10-12 10:59 | Ophthalmology Operative Report ---
Cataract removal/placement IOL PREOPERATIVE DIAGNOSIS: Cataract Left Eye POSTOPERATIVE DIAGNOSIS: Cataract Left Eye PROCEDURE: Cataract removal and placement of posterior chamber implant, left eye SURGEON: Desean Nunez ANESTHESIA: Topical with sedation COMPLICATIONS: None ESTIMATED BLOOD LOSS: Minimal DESCRIPTION OF PROCEDURE: After proper informed consent was obtained, the patient, a 67 male, was taken to the Operating Room and the left eye was anesthetized with tetracaine. The left eye was then prepped and draped in the usual manner. A wire lid speculum was placed. A paracentesis was made at the left hand position. Preservative free lidocaine was injected into the anterior chamber followed by viscoelastic. A clear corneal incision was made in the temporal position. A capsulorrhexis was preformed and the central nuclear and cortical material were removed. The posterior capsule was polished and an Theodore 18.5 [id number] was placed into the capsular bag. The residual viscoelastic was aspirated and balanced saline solution was injected into the anterior chamber. Moxifloxacin was injected into the anterior chamber. The wound was checked and found to be water tight. The patient tolerated the procedure well without complications. DESEAN NUNEZ MD Oct 12, 2022 10:59
[2022-10-12 11:03] VITALS: BP 144/77
[2022-10-12] MEDS ORDERED: acetaZOLAMIDE ER 500 MG CAP (DIAMOX SEQUELS) PO ONE (11:30)
--- NOTE | 2022-10-12 14:02 | Anesthesia-General Post-Op ---
MAC Patient Condition Mental Status/LOC: Same as Preop Cardiovascular: Satisfactory Nausea/Vomiting: Absent Respiratory: Satisfactory Pain: Controlled Complications: Absent Post Op Complications Complications None Follow Up Care/Instructions Patient Instructions None needed. Anesthesiology Discharge Order Discharge Order Patient was doing well after the procedure with no complaints, stable vital signs, no apparent adverse anesthesia problems. No complications reported per nursing. SIMONE HUMPHRIES DO Oct 12, 2022 14:02
== END 2022-10-12 11:08 | disposition home or self-care (01) ==
LOC: SDC 09:35
PROVIDERS: ATTEND Specialist
DX: E11.36 Type 2 diabetes mellitus with diabetic cataract (principal); H25.9 Unspecified age-related cataract; Z79.84 Long term (current) use of oral hypoglycemic drugs
CPT/HCPCS: 66984; V2632

== ENCOUNTER 2023-08-09 17:44 | Observation (INO) | payer MEDICARE, OTHER ==
[~2023-08-09] VITALS: Ht 175.3 cm; Wt 101.1 kg
[2023-08-09 17:58] LABS: BASOPHILS # (AUTO) 0.1 10^3/uL (0.0-0.1); BASOPHILS % (AUTO) 1 % (0-10); EOSINOPHILS # (AUTO) 0.1 10^3/uL (0.0-0.3); EOSINOPHILS % (AUTO) 1 % (0-10); HEMATOCRIT 45 % (40-54); HEMOGLOBIN 15.2 g/dL (13.3-17.7); LYMPHOCYTES # (AUTO) 2.1 10^3/uL (1.0-4.0); LYMPHOCYTES % (AUTO) 23 % (12-44); MEAN CORPUSCULAR HEMOGLOBIN 31 pg (25-34); MEAN CORPUSCULAR HGB CONC 34 g/dL (32-36); MEAN CORPUSCULAR VOLUME 90 fL (80-99); MEAN PLATELET VOLUME 9.6 fL (9.0-12.2); MONOCYTES # (AUTO) 0.6 10^3/uL (0.0-1.0); MONOCYTES % (AUTO) 7 % (0-12); NEUTROPHILS # (AUTO) 6.1 10^3/uL (1.8-7.8); NEUTROPHILS % (AUTO) 68 % (42-75); PLATELET COUNT 199 10^3/uL (130-400)
[2023-08-09] MEDS ORDERED: NITROGLYCERIN 2% OINT 1 GM UNIT DOSE PACKET ONE (17:58)
[2023-08-09] MEDS ORDERED: NITROGLYCERIN 0.4 MG SL TABLETS BTL 25'S SL PRN ×2 (18:00→21:15)
[2023-08-09] MEDS ORDERED: NITROGLYCERIN 2% OINT 1 GM UNIT DOSE PACKET TOP ONE (18:00)
[2023-08-09] MEDS ORDERED: ASPIRIN 81 MG CHEWABLE TABLET PO ONE (18:00)
--- NOTE | 2023-08-09 18:00 | ED Chest Pain ---
General Chief Complaint: Chest Pain Stated Complaint: CHEST PAIN/LEFT ARM PAIN Source: patient History of Present Illness Date Seen by Provider: Aug 09, 2023 Time Seen by Provider: 17:48 Initial Comments PT ARRIVES VIA POV FROM HOME C/O CHEST PAIN SINCE 1544 TODAY PAIN COMES AND GOES, AND HAS BEEN HAVING THIS OFF AND ON FOR THE LAST 7-10 DAYS PAIN IS IN CENTER OF CHEST AND RADIATES DOWN LEFT ARM RATES PAIN 10/10 AT WORST, 7/10 NOW PAIN IS WORSE WITH EXERTION AND LAYING FLAT, BETTER IF SITTING UP AND REST + SHORTNESS OF BREATH WITH PAIN AND EXERTION + SWEATS NO NAUSEA/VOMITING NO PALPITATIONS NO DIZZINESS OR SYNCOPE NO SWELLING IN LEGS/FEET OR PAIN IN CALVES PT STATES HE HAS HAD THIS IN THE PAST AND SEES DR. PEACE ON ARRIVAL, PT STATES HE HAS "NO MEDICAL PROBLEMS" , THEN PROCEEDS TO LIST ALL HIS MEDICATIONS, INCLUDING HTN, DIABETES, GERD, ASTHMA, AND PT HAD A NSTEMI 2018 AND HAD A CARDIAC CATH Allergies and Home Medications Allergies Coded Allergies: No Known Drug Allergies (Unverified , 10/10/22) Patient Home Medication List Albuterol Sulfate (Ventolin Hfa) 1 Puff Puff, 2 PUFF INH Q4H PRN for SHORTNESS OF BREATH, (Reported) Entered as Reported by: PEPPER MELGAR on 01/14/19 0919 Atorvastatin Calcium (Atorvastatin Calcium) 40 Mg Tablet, 40 MG PO UD, (Reported) Entered as Reported by: LYLE HARRINGTON on 10/09/22 1303 Dapagliflozin Propanediol (Farxiga) 10 Mg Tablet, 10 MG PO UD, (Reported) Entered as Reported by: LYLE HARRINGTON on 10/09/22 1303 Dexlansoprazole (Dexilant) 60 Mg Cap., 60 MG PO UD, (Reported) Entered as Reported by: LYLE HARRINGTON on 10/09/22 1303 Doxycycline Hyclate (Doxycycline Hyclate) 100 Mg Capsule, 100 MG PO UD, (Rep orted) Entered as Reported by: LYLE HARRINGTON on 10/09/22 1303 Losartan Potassium (Losartan Potassium) 50 Mg Tablet, 50 MG PO UD, (Reported) Entered as Reported by: LYLE HARRINGTON on 10/09/22 1303 Metoprolol Succinate (Metoprolol Succinate) 25 Mg Tab.er.24h, 25 MG PO DAILY Prescribed by: CHYNA PEACE on 01/14/19 1145 Tirzepatide (Mounjaro) 7.5 Mg/0.5 Ml Pen.injctr, 7.5 MG SQ UD, (Reported) Entered as Reported by: LYLE Morgan LEN on 10/09/22 1303 Past Daibrhi-Ibrayx-Wajwjo Hx Seasonal Allergies Seasonal Allergies: Yes Past Medical History Surgeries: Yes (R knee; CARDIAC CATH 2018) Cardiac, Orthopedic, Tonsillectomy Respiratory: Yes Asthma Cardiac: Yes (NSTEMI 2019--CATH/NO INTERVENTION-SMALL VESSEL DISEASE) Coronary Artery Disease, Heart Attack, High Cholesterol, Hypertension Neurological: No Genitourinary: No Gastrointestinal: Yes Gastroesophageal Reflux Musculoskeletal: No Endocrine: Yes Diabetes, Non-Insulin dep HEENT: Yes (S/P TONSILLECTOMY) Cancer: No Psychosocial: Yes ADD/ADHD Integumentary: Yes (rosacea) Blood Disorders: No Adverse Reaction/Blood Tranf: No Family Medical History Cardiovascular disease 19 MOTHER, , Age:76, Onset:60 years & older FH: COPD (chronic obstructive pulmonary disease) 19 FATHER, , Age:78, Onset:60 years & older 19 MOTHER, , Age:76, Onset:60 years & older CARDIAC CATH [address] PEACE: CONCLUSION: 1. Diffuse coronary ectasia more pronounced in the right coronary system, slow flow diffusely due to small vessel disease 2. 40-50 percent mid to distal circumflex artery stenosis nonobstructive disease 3. Normal left ventricular size and systolic function estimated ejection fraction 60 percent 4. Normal aortic arch and great vessels of the neck DISCUSSION AND RECOMMENDATION: I will maximize medical therapy and evaluate tolerance and response Physical Exam Vital Signs Vital Signs - First Documented 08/09/23 17:46 Temp 35.9 Pulse 61 Resp 18 B/P (MAP) 211/113 (145) Pulse Ox 97 O2 Delivery Room Air Capillary Refill : Height, Weight, BMI Height: 5'10.00" Weight: 247lbs. 0.0oz. 112.552684ub; 31.63 BMI Method:Stated Progress/Results/Core Measures Results/Orders Lab Results Laboratory Tests Test 08/09/23 17:52 08/09/23 17:56 Range/Units White Blood Count 9.0 4.3-11.0 10^3/uL Red Blood Count 4.99 4.30-5.52 10^6/uL Hemoglobin 15.2 13.3-17.7 g/dL Hematocrit 45 40-54 % Mean Corpuscular Volume 90 80-99 fL Mean Corpuscular Hemoglobin 31 25-34 pg Mean Corpuscular Hemoglobin Concent 34 32-36 g/dL Red Cell Distribution Width 12.7 10.0-14.5 % Platelet Count 199 130-400 10^3/uL Mean Platelet Volume 9.6 9.0-12.2 fL Immature Granulocyte % (Auto) 0 % Neutrophils (%) (Auto) 68 42-75 % Lymphocytes (%) (Auto) 23 12-44 % Monocytes (%) (Auto) 7 0-12 % Eosinophils (%) (Auto) 1 0-10 % Basophils (%) (Auto) 1 0-10 % Neutrophils # (Auto) 6.1 1.8-7.8 10^3/uL Lymphocytes # (Auto) 2.1 1.0-4.0 10^3/uL Monocytes # (Auto) 0.6 0.0-1.0 10^3/uL Eosinophils # (Auto) 0.1 0.0-0.3 10^3/uL Basophils # (Auto) 0.1 0.0-0.1 10^3/uL Immature Granulocyte # (Auto) 0.0 0.0-0.1 10^3/uL Prothrombin Time 13.4 12.2-14.7 SEC INR Comment 1.0 0.8-1.4 Activated Partial Thromboplast Time 25 24-35 SEC D-Dimer 0.64 H 0.00-0.49 UG/ML Sodium Level 140 135-145 MMOL/L Potassium Level 3.9 3.6-5.0 MMOL/L Chloride Level 103 98-107 MMOL/L Carbon Dioxide Level 27 21-32 MMOL/L Anion Gap 10 5-14 MMOL/L Blood Urea Nitrogen 13 7-18 MG/DL Creatinine 1.15 0.60-1.30 MG/DL Estimat Glomerular Filtration Rate 69 BUN/Creatinine Ratio 11 Glucose Level 163 H 70-105 MG/DL Calcium Level 9.8 8.5-10.1 MG/DL Corrected Calcium 8.5-10.1 MG/DL Magnesium Level 2.2 1.6-2.4 MG/DL Total Bilirubin 0.7 0.1-1.0 MG/DL Aspartate Amino Transf (AST/SGOT) 30 5-34 U/L Alanine Aminotransferase (ALT/SGPT) 42 0-55 U/L Alkaline Phosphatase 58 40-136 U/L Total Creatine Kinase 114 30-200 U/L Creatine Kinase MB 1.4 <6.6 NG/ML Myoglobin 54.2 10.0-92.0 NG/ML Troponin I < 0.028 <0.028 NG/ML B-Type Natriuretic Peptide 41.2 <100.0 PG/ML Total Protein 8.0 6.4-8.2 GM/DL Albumin 4.6 H 3.2-4.5 GM/DL Amylase Level 81 25-125 U/L Lipase 37 8-78 U/L Glucometer 151 H 70-110 MG/DL My Orders Orders - PARVEZ VALDERRAMA DO Cbc And Automated Diff (08/09/23 17:49) Magnesium (08/09/23 17:49) Chest 1 View, Ap/Pa Only (08/09/23 17:49) Ekg Tracing (08/09/23 17:49) Comprehensive Metabolic Panel (08/09/23 17:49) Myoglobin Serum (08/09/23 17:49) Protime With Inr (08/09/23 17:49) Partial Thromboplastin Time (08/09/23 17:49) O2 (08/09/23 17:49) Monitor-Rhythm Ecg Trace Only (08/09/23 17:49) Ed Iv/Invasive Line Start (08/09/23 17:49) Creatine Kinase (08/09/23 17:49) Creatine Kinase Mb (08/09/23 17:49) Lipase (08/09/23 17:49) Amylase (08/09/23 17:49) Bnp Tia (08/09/23 17:49) Fibrin Degradation Products (08/09/23 17:49) Troponin I Tia (08/09/23 17:49) Nitroglycerin 0.4 Mg Btl 25's (Nitroglyc (08/09/23 18:00) Aspirin Chewable Tablet (Aspirin Chewabl (08/09/23 18:00) Nitroglycerin Ointment (Nitroglycerin (08/09/23 18:00) Nitroglycerin Ointment (Nitroglycerin (08/09/23 17:58) Ct Angio Chest W (R/O Pe) (08/09/23 18:26) Morphine Injection (Morphine Injection (08/09/23 18:30) Hydralazine Injection (Hydralazine Injec (08/09/23 18:30) Iohexol Injection (Omnipaque 350 Mg/Ml 1 (08/09/23 18:45) Contrast Received (Contrast Received) (08/09/23 18:45) Ns (Ivpb) 100 Ml (Sodium Chloride 0.9% 1 (08/09/23 18:45) Medications Given in ED Current Medications Medications Dose Ordered Sig/Charan Route Start Time Stop Time Status Last Admin Dose Admin Aspirin 324 mg ONCE ONCE PO 08/09/23 18:00 08/09/23 18:01 DC 08/09/23 18:00 324 MG Hydralazine HCl 10 mg ONCE ONCE IV 08/09/23 18:30 08/09/23 18:31 DC 08/09/23 18:44 10 MG Morphine Sulfate 4 mg ONCE ONCE IVP 08/09/23 18:30 08/09/23 18:31 DC 08/09/23 18:45 4 MG Nitroglycerin 1 inch ONCE ONCE TOP 08/09/23 18:00 08/09/23 18:01 DC 08/09/23 17:59 1 INCH Vital Signs/I&O 08/09/23 08/09/23 17:46 17:46 Temp 35.9 Pulse 61 Resp 18 B/P (MAP) 211/113 (145) Pulse Ox 97 O2 Delivery Room Air Room Air Progress Progress Note : Progress Note VITALS ON ARRIVAL: TEMP 35.9=96.6, HR 61, RR 18 BP 211/113, O2 SAT 97% ON ROOM AIR GIVEN: -ASPIRIN -NITROPASTE--NO RELIEF OF PAIN AND MINIMAL IMPROVEMENT IN BP -HYDRALAZINE -MORPHINE LABS: -CBC -CMP -MG -AMYLASE/LIPASE -TROPONIN -BNP -PT/PTT/INR -D-DIMER EKG IS UNREMARKABLE AND UNCHANGED FROM PREVIOUS CXR IS UNREMARKABLE CT CHEST ANGIOGRAM 1825-STANDING UP NEXT TO BED, STATES PAIN IS WORSE, AND RATES PAIN 9/10 NOW. BP STILL ELEVATED AT 200/107, HR 62. ADDITIONAL MEDICATIONS ORDERED FOR BLOOD PRESSURE AND PAIN. CT CHEST ANGIOGRAM ORDERED Diagnostic Imaging Comments CXR--PER RADIOLOGIST REPORT AT 1823 FINDINGS: Heart size and pulmonary vasculature are normal. The lungs are clear without consolidation, pleural effusion, or pneumothorax. Degenerative changes of the thoracic spine. Osseous structures are otherwise intact. IMPRESSION: No acute radiographic abnormality in the chest. CT CHEST ANGIOGRAM--PER RADIOLOGIST REPORT AT 1908 FINDINGS: This helical CT pulmonary angiogram is diagnostic to the subsegmental level branches of the pulmonary artery and demonstrates no pulmonary emboli. The heart and great vessels are unremarkable. There is no pericardial effusion. There is no axillary, mediastinal, or hilar adenopathy. The lungs demonstrate no consolidation, nodules, or other parenchymal abnormality. No pleural effusion is seen. Osseous structures appear normal. Limited views of the upper abdomen are unremarkable. IMPRESSION: No acute pulmonary embolus. Negative CT chest. Reviewed: Reviewed by Me Departure Impression Primary Impression: Chest pain Additional Impressions: Hypertensive urgency NIDDM Small vessel coronary artery disease Departure-Patient Inst. Referrals: DERICK TA DO (PCP) Primary Care Physician SHARON TA DNP (Family) Primary Care Physician PARVEZ VALDERRAMA DO Aug 09, 2023 18:00
[2023-08-09 18:06] LABS: ALBUMIN 4.6 GM/DL (3.2-4.5); CHLORIDE 103 MMOL/L (98-107); POTASSIUM 3.9 MMOL/L (3.6-5.0); SODIUM 140 MMOL/L (135-145)
[2023-08-09 18:07] LABS: AMYLASE 81 U/L (25-125); CALCIUM 9.8 MG/DL (8.5-10.1)
[2023-08-09 18:08] LABS: PROTHROMBIN TIME PATIENT 13.4 SEC (12.2-14.7)
[2023-08-09 18:09] LABS: GLUCOSE 163 MG/DL (70-105)
[2023-08-09 18:10] LABS: BILIRUBIN,TOTAL 0.7 MG/DL (0.1-1.0); CARBON DIOXIDE 27 MMOL/L (21-32)
[2023-08-09 18:12] LABS: ALKALINE PHOSPHATASE 58 U/L (40-136); CREATININE SERUM 1.15 MG/DL (0.60-1.30); FIBRIN DEGRADATION PRODUCTS 0.64 UG/ML (0.00-0.49); GFR ESTIMATED 69
[2023-08-09 18:13] LABS: BUN/CREATININE RATIO 11
[2023-08-09 18:15] LABS: ALANINE AMINOTRANSFERASE 42 U/L (0-55); MAGNESIUM 2.2 MG/DL (1.6-2.4)
[2023-08-09 18:16] LABS: CREATINE KINASE 114 U/L (30-200); LIPASE 37 U/L (8-78)
--- NOTE | 2023-08-09 18:21 | Diagnostic Imaging Report ---
EXAMINATION: Chest, 1 view. HISTORY: Chest pain. COMPARISON: 01/13/2019. FINDINGS: Heart size and pulmonary vasculature are normal. The lungs are clear without consolidation, pleural effusion, or pneumothorax. Degenerative changes of the thoracic spine. Osseous structures are otherwise intact. IMPRESSION: No acute radiographic abnormality in the chest. Dictated by: Dictated on workstation # [id number]
[2023-08-09 18:23] LABS: CREATINE KINASE MB 1.4 NG/ML (<6.6)
[2023-08-09] MEDS ORDERED: morphine INJ 4 MG/ML 1 ML (VIAL/SYRINGE) IVP ONE ×2 (18:30→19:30)
[2023-08-09] MEDS ORDERED: hydrALAZINE INJECTION 20 MG/ML VIAL IV ONE (18:30)
[2023-08-09] MEDS ORDERED: IOHEXOL 350 MG/ML 100 ML (OMNIPAQUE 350) VIAL IV ONE (18:45)
[2023-08-09] MEDS ORDERED: NS 100 ML (IVPB) BAG IV ONE (18:45)
[2023-08-09] MEDS ORDERED: HOLD METFORMIN - RECEIVED CONTRAST 20 ML VIAL IV SCH (18:45)
--- NOTE | 2023-08-09 19:08 | Diagnostic Imaging Report ---
TECHNIQUE: CTA of the chest was performed with contrast bolus timing optimized for evaluation of the pulmonary arteries. 3D reformats were obtained and reviewed. Dose reduction techniques were utilized. REASON FOR EXAM: Chest pain. Shortness of breath. COMPARISON: Chest radiograph performed earlier this same day. FINDINGS: This helical CT pulmonary angiogram is diagnostic to the subsegmental level branches of the pulmonary artery and demonstrates no pulmonary emboli. The heart and great vessels are unremarkable. There is no pericardial effusion. There is no axillary, mediastinal, or hilar adenopathy. The lungs demonstrate no consolidation, nodules, or other parenchymal abnormality. No pleural effusion is seen. Osseous structures appear normal. Limited views of the upper abdomen are unremarkable. IMPRESSION: No acute pulmonary embolus. Negative CT chest. Dictated by: Dictated on workstation # [id number]
[2023-08-09] MEDS ORDERED: PANTOPRAZOLE INJECTION 40 MG VIAL IV ONE (19:30)
[2023-08-09] MEDS ORDERED: MELATONIN 3 MG TABLET PO PRN (21:15)
[2023-08-09] MEDS ORDERED: MILK OF MAGNESIA 400 MG/5 ML 30 ML UDC PO PRN (21:15)
[2023-08-09] MEDS ORDERED: PATIENT MAY USE OWN MEDS, ALL PO SCH (21:15)
[2023-08-09] MEDS ORDERED: ONDANSETRON INJECTION 4 MG/2 ML (SDV) IVP PRN (21:15)
[2023-08-09] MEDS ORDERED: ONDANSETRON INJECTION 4 MG/2 ML (SDV) IV PRN (21:15)
[2023-08-09] MEDS ORDERED: BENZONATATE 100 MG CAPSULE PO PRN (21:15)
[2023-08-09] MEDS ORDERED: morphine INJ 4 MG/ML 1 ML (VIAL/SYRINGE) IV PRN (21:15)
[2023-08-09] MEDS ORDERED: ANTACID SUSPENSION 30 ML UDC PO PRN (21:15)
[2023-08-09] MEDS ORDERED: meTOprolol TARTRATE (IR) 25 MG TABLET PO ONE (21:45)
--- NOTE | 2023-08-09 21:56 | Tele-ICU Progress Note ---
Progress Note Tele ICU 68 yo man admitted with hx chest pain off and on 7-10 days. Has had NSTEMI in past 2019 with 40-50% Lcirc disease at that time on cath. In ED, was found to be hypertensive BP 211/113 received NTP, MS 4 mg, ASA, pantoprazole and one dose of hydralazine- with responsive BP and chest pain resolved. Slurry Control Tender has been notified by ED and general orders started. PMHx HTN, DM, GERD,asthma EKG x2 sinus, QS in V1 and V2 -c/w old anteroseptal FL trop <0.028 CXR IMPRESSION: No acute radiographic abnormality in the chest. CTA Chest IMPRESSION: No acute pulmonary embolus. Negative CT chest. Per Video pt awake, asymptomatic, is hungry HR 70 sinus, sats 96% BP 151/87 A/P Chest Pain - HTN urgency General orders are already written. Will continue the ntp at 1" q. 6 hours, add 1 dose tonight of metoprolol 25 mg po (usual home Rx), added Hgb A1C to labs and ordered ADA diet tonight, is already scheduled NPO after MN. D/W nursing. Focused Exam Height, Weight, BMI Height: 5'10.00" Weight: 247lbs. 0.0oz. 112.806332dk; 32.83 BMI Method:Stated TIA LUX DO Aug 09, 2023 21:56
[2023-08-09] MEDS: NITROGLYCERIN 2% OINT 1 GM UNIT DOSE PACKET TOP SCH (23:47)
[2023-08-10 03:15] LABS: HEMATOCRIT 43 % (40-54); HEMOGLOBIN 14.5 g/dL (13.3-17.7); MEAN CORPUSCULAR HEMOGLOBIN 31 pg (25-34); MEAN CORPUSCULAR HGB CONC 34 g/dL (32-36); MEAN CORPUSCULAR VOLUME 91 fL (80-99); PLATELET COUNT 173 10^3/uL (130-400); WHITE BLOOD COUNT 9.7 10^3/uL (4.3-11.0)
[2023-08-10 03:27] LABS: CALCIUM 9.3 MG/DL (8.5-10.1)
[2023-08-10 03:31] LABS: PHOSPHORUS 3.1 MG/DL (2.3-4.7)
[2023-08-10 03:32] LABS: CREATININE SERUM 0.92 MG/DL (0.60-1.30)
[2023-08-10] MEDS ORDERED: ENOXAPARIN 100 MG/1 ML SYRINGE SC SCH ×2 (04:15→18:00)
[2023-08-10] MEDS: inSUlin ASPART 1 UNIT/0.01 ML (PER UNIT) SC SCH ×4 (05:56→20:18)
[2023-08-10] MEDS: NITROGLYCERIN 2% OINT 1 GM UNIT DOSE PACKET TOP SCH ×4 (06:09→23:15)
[2023-08-10] MEDS ORDERED: ASPIRIN enteric coated 81MG TABLET PO SCH (09:00)
--- NOTE | 2023-08-10 10:10 | History & Physical-Hospitalist ---
History of Present Illness HPI/Chief Complaint Pt is a 68yoCM With a PMH of HTN, NIDDMII, GERD, asthma, BPH and NSTEMI in 2019 who presented to the ER due to yaquelin thomas. He reports his symptoms have been on going for about a week or so but worsened and persisted yesterday while he was at work. He complains of chest pain that radiates to his left arm. Yesterday this happened and he became quite diaphoretic as well. He also has been having some dyspnea on exertion and orthopnea as well. He thought it was his GERD because he was switched off name brand Dexilant to generic this summer and thought it may not be working as well. He actually saw his PCP for this this week and had an appt scheduled for next week with Dr Moya but symptoms worsened prompting him to seek evaluation in the ER. His initial troponin was negative but he was admitted for further management given symptoms and risk factors. Source: patient Exam Limitations: no limitations Date Seen 08/10/23 Time Seen by a Provider: 07:45 Attending Physician Ricardo Ortiz DO PCP Admitting Physician: Soto Mendoza MD Attending Physician: Soto Mendoza MD Referring Physician Date of Admission Aug 09, 2023 at 20:18 Home Medications & Allergies Home Medications Reviewed patient Home Medication Reconciliation performed by pharmacy medication reconciliations sanitation technician and/or nursing. Patients Allergies have been reviewed. Allergies Allergies Coded Allergies No Known Drug Allergies (Unverified10/10/22) Past Lzcdjqv-Jimmfk-Xtskdw Hx Patient Social History Marrital Status: Employed/Student: employed Tobacco Use?: No Smoking Status: Never a Smoker Smokeless Tobacco Frequency: Never a User Use of E-Cig and/or Vaping dev: No Use of E-Cig and/or Vaping Subhash: Never a User Substance use?: No Alcohol Use?: No Pt feels they are or have been: No Seasonal Allergies Seasonal Allergies: Yes Current Status Advance Directives: No Communicates: Verbally Primary Language: Kazakh Preferred Spoken Language: Kazakh Is interpretation needed?: No Sensory deficits: Vision impairment, Hearing impairment Implanted or Applied Medical D: None Past Medical History Surgeries: Cardiac, Orthopedic, Tonsillectomy Asthma Coronary Artery Disease, Heart Attack, High Cholesterol, Hypertension Gastroesophageal Reflux Diabetes, Non-Insulin dep ADD/ADHD Blood Disorders: No Adverse Reaction/Blood Tranf: No Family Medical History Cardiovascular disease 19 MOTHER, , Age:76, Onset:60 years & older FH: COPD (chronic obstructive pulmonary disease) 19 FATHER, , Age:78, Onset:60 years & older 19 MOTHER, , Age:76, Onset:60 years & older CARDIAC CATH [address] PEACE: CONCLUSION: 1. Diffuse coronary ectasia more pronounced in the right coronary system, slow flow diffusely due to small vessel disease 2. 40-50 percent mid to distal circumflex artery stenosis nonobstructive disease 3. Normal left ventricular size and systolic function estimated ejection fraction 60 percent 4. Normal aortic arch and great vessels of the neck DISCUSSION AND RECOMMENDATION: I will maximize medical therapy and evaluate tolerance and response Review of Systems Constitutional: see HPI Physical Exam Physical Exam Vital Signs Vital Signs - First Documented 08/09/23 08/09/23 17:46 20:28 Temp 35.9 Pulse 61 Resp 18 B/P (MAP) 211/113 (145) Pulse Ox 97 O2 Delivery Room Air O2 Flow Rate 2.00 Capillary Refill : Less Than 3 Seconds Height, Weight, BMI Height: 5'10.00" Weight: 247lbs. 0.0oz. 112.642998kr; 32.83 BMI Method:Stated General Appearance: No Apparent Distress, WD/WN Respiratory: Lungs Clear, No Respiratory Distress Cardiovascular: Regular Rate, Rhythm, No Murmur Gastrointestinal: Normal Bowel Sounds, Non Tender, Soft Extremity: No Calf Tenderness, No Pedal Edema Neurologic/Psychiatric: Alert, Oriented x3, Normal Mood/Affect Results Results/Procedures Labs Laboratory Tests 08/09/23 17:52 08/10/23 02:54 Patient resulted labs reviewed. Imaging [facility], [place] NAME: KIMBERLY EPPERSON [facility] REC#: [id number] PT STATUS: REG ER : 1955 PHYSICIAN: PARVEZ VALDERRAMA DO ADMIT DATE: 08/09/23/ER Signed Date of Exam:08/09/23 CHEST 1 VIEW, AP/PA ONLY EXAMINATION: Chest, 1 view. HISTORY: Chest pain. COMPARISON: 01/13/2019. FINDINGS: Heart size and pulmonary vasculature are normal. The lungs are clear without consolidation, pleural effusion, or pneumothorax. Degenerative changes of the thoracic spine. Osseous structures are otherwise intact. IMPRESSION: No acute radiographic abnormality in the chest. Dictated by: Dictated on workstation # [id number] Dict: 08/09/231817 Trans: 08/09/231825 [id number] Interpreted by: ALEJANDRO GARCIA DO Electronically signed by: ALEJANDRO GARCIA DO 08/09/231825 [facility], [place] NAME: KIMBERLY EPPERSON [facility] REC#: [id number] PT STATUS: REG ER : 1955 PHYSICIAN: PARVEZ VALDERRAMA DO ADMIT DATE: 08/09/23/ER Signed Date of Exam:08/09/23 CT ANGIO CHEST W (R/O PE) TECHNIQUE: CTA of the chest was performed with contrast bolus timing optimized for evaluation of the pulmonary arteries. 3D reformats were obtained and reviewed. Dose reduction techniques were utilized. REASON FOR EXAM: Chest pain. Shortness of breath. COMPARISON: Chest radiograph performed earlier this same day. FINDINGS: This helical CT pulmonary angiogram is diagnostic to the subsegmental level branches of the pulmonary artery and demonstrates no pulmonary emboli. The heart and great vessels are unremarkable. There is no pericardial effusion. There is no axillary, mediastinal, or hilar adenopathy. The lungs demonstrate no consolidation, nodules, or other parenchymal abnormality. No pleural effusion is seen. Osseous structures appear normal. Limited views of the upper abdomen are unremarkable. IMPRESSION: No acute pulmonary embolus. Negative CT chest. Dictated by: Dictated on workstation # [id number] Dict: 08/09/231855 Trans: 08/09/231905 [id number] Interpreted by: ANIBAL WU DO Electronically signed by: ANIBAL WU DO 08/09/231905 Assessment/Plan Admission Diagnosis Chest pain Admission Status: Observation Assessment and Plan Chest pain HTN symptoms concerning for cardiac source Troponin trended up Cardiology consulted, appreciate recs Lovenox Metoprolol Loaded with Plavix, continue ASA Telemetry Plan for cath today NIDDMII GERD Asthma Continue home meds as appropriate SSI DVT ppx: Already on Lovenox Diagnosis/Problems Diagnosis/Problems (1) Diabetes Status: Chronic Qualifiers: Diabetes mellitus type: type 2 Diabetes mellitus group home insulin use: without group home use Diabetes mellitus complication status: without compl ication Qualified Codes: E11.9 - Type 2 diabetes mellitus without complicatio ns (2) GERD (gastroesophageal reflux disease) Status: Chronic Qualifiers: Esophagitis presence: esophagitis presence not specified Qualified Codes: K21.9 - Gastro-esophageal reflux disease without esophagitis (3) PREETHI (obstructive sleep apnea) Status: Chronic (4) Chest pain Status: Acute Qualifiers: Chest pain type: chest pain due to myocardial ischemia Ischemic chest pain type: stable angina pectoris Qualified Codes: I20.89 - Other forms of angina pectoris (5) Small vessel coronary artery disease Status: Chronic SOTO MENDOZA MD Aug 10, 2023 10:10
[2023-08-10] MEDS ORDERED: CLOPIDOGREL 300 MG TABLET PO ONE ×2 (10:35→12:41)
[2023-08-10] MEDS ORDERED: CLOPIDOGREL 300 MG TABLET PO NR (10:45)
[2023-08-10] MEDS ORDERED: NS IV 1000 ML 0 ML ONE (10:55)
[2023-08-10] MEDS: NS IV 1000 ML 1,000 ML IV SCH ×2 (11:05→22:13)
[2023-08-10] MEDS ORDERED: LIDOCAINE 1% INJ 20 ML VIAL ONE (11:13)
[2023-08-10] MEDS ORDERED: NS IV 1000 ML 1,000 ML ONE (11:14)
[2023-08-10] MEDS ORDERED: HEParin (CATH LAB) 2,000 ML IV ONE (11:14)
[2023-08-10] MEDS ORDERED: fentaNYL INJECTION 100 MCG/2 ML VIAL ONE (11:18)
[2023-08-10] MEDS ORDERED: MIDAZOLAM INJ 5 MG/5 ML VIAL ONE (11:19)
[2023-08-10] MEDS ORDERED: HEParin 1000 UNIT/ML (10ML VIAL) FOR BOLUS ONE (11:19)
[2023-08-10] MEDS ORDERED: NITRO DRIP 25000 MCG/D5W 250 ML IV ONE (11:19)
--- NOTE | 2023-08-10 11:24 | Consultation-Cardiology ---
HPI-Cardiology Cardiology Consultation: Date of Consultation 08/10/23 Time Seen by a Provider: 10:15 Date of Admission Attending Physician Ricardo Ortiz DO Admitting Physician Admitting Physician: Diane Mendoza MD Attending Physician: Diane Mendoza MD Consulting Physician STEVE HINDS MD, MA, FACP, FACC, FSCAI, CCDS Physician requesting consult: Dr Mendoza HPI: Chief Complaint: Chest pain 68 yo man with intermittent chest pain for the past 3 days: mid-sternal, lasting several minutes at a time, mod to moderately severe, pressure-like, sometimes radiating to the L arm, worse with exertion, similar to what he experienced 4 years ago and for which he underwent a card cath that did not show significant CAD, none since admission. No shortness of breath at rest. No n/v/d. No palp or syncope. No swelling Review of Systems-Cardiology Review of Systems Constitutional: No malaise, No tiredness, No weight loss, No weight gain Eyes: No vision change Ears/Nose/Throat: No ear discharge, No nasal drainage, No recent hearing loss Respiratory: As described under HPI Cardiovascular: As described under HPI Gastrointestinal: As described under HPI Genitourinary: No dysuria, No hematuria, No urine frequency changes Musculoskeletal: No back pain, No joint pain Skin: No rash, No ulcerations Psychiatric/Neurological: No seizure, No focal weakness, No syncope Hematologic: No bleeding abnormalities CGK-Exypjt-Ljbsum Hx Patient Social History Smoking Status: Never a Smoker 2nd Hand Smoke Exposure: No Alcohol Use?: No Pt feels they are or have been: No Past Medical History PMH As described under Assessment. Family Medical History Family History: Cardiovascular disease 19 MOTHER, , Age:76, Onset:60 years & older FH: COPD (chronic obstructive pulmonary disease) 19 FATHER, , Age:78, Onset:60 years & older 19 MOTHER, , Age:76, Onset:60 years & older Allergies and Home Medications Allergies Coded Allergies: No Known Drug Allergies (Unverified , 10/10/22) Patient Home Medication List Home Medication List Reviewed: Yes Albuterol Sulfate (Ventolin Hfa) 1 Puff Puff, 2 PUFF INH Q4H PRN for SHORTNESS OF BREATH, (Reported) Entered as Reported by: PEPPER MELGAR on 01/14/19 0919 Atorvastatin Calcium (Atorvastatin Calcium) 40 Mg Tablet, 40 MG PO UD, (Reporte d) Entered as Reported by: LYLE HARRINGTON on 10/09/22 1303 Dapagliflozin Propanediol (Farxiga) 10 Mg Tablet, 10 MG PO UD, (Reported) Entered as Reported by: LYLE HARRINGTON on 10/09/22 1303 Dexlansoprazole (Dexilant) 60 Mg Reza.bp, 60 MG PO UD, (Reported) Entered as Reported by: LYLE HARRINGTON on 10/09/22 1303 Doxycycline Hyclate (Doxycycline Hyclate) 100 Mg Capsule, 100 MG PO UD, (Reported) Entered as Reported by: LYLE HARRINGTON on 10/09/22 1303 Losartan Potassium (Losartan Potassium) 50 Mg Tablet, 50 MG PO UD, (Reported) Entered as Reported by: LYLE HARRINGTON on 10/09/22 130 Metoprolol Succinate (Metoprolol Succinate) 25 Mg Tab.er.24h, 25 MG PO DAILY Prescribed by: CHYNA TYSON on 01/14/19 1145 Tirzepatide (Mounjaro) 7.5 Mg/0.5 Ml Pen.injctr, 7.5 MG SQ UD, (Reported) Entered as Reported by: LYLE HARRINGTON on 10/09/22 1303 Physical Exam-Cardiology Physical Exam Vital Signs/I&O 08/09/23 08/10/23 08/10/23 08/10/23 23:23 00:00 01:00 01:00 Pulse 64 72 72 B/P (MAP) 150/87 (108) 163/94 (117) Pulse Ox 98 95 98 O2 Delivery Room Air Room Air Room Air 08/10/23 08/10/23 08/10/23 08/10/23 02:00 03:00 04:00 04:00 Temp 36.8 Pulse 89 65 66 B/P (MAP) 170/92 (118) 161/92 (115) 170/81 (110) Pulse Ox 95 98 96 O2 Delivery Room Air Room Air Room Air 08/10/23 08/10/23 08/10/23 08/10/23 04:15 05:00 06:00 07:00 Pulse 69 92 70 B/P (MAP) 152/94 (113) 140/81 (100) 154/91 (111) Pulse Ox 96 95 98 96 O2 Delivery Room Air Room Air Room Air Room Air 08/10/23 08/10/23 08/10/23 08/10/23 07:00 08:00 08:00 08:00 Temp 36.7 Pulse 70 75 B/P (MAP) 155/87 (105) Pulse Ox 98 96 O2 Delivery Room Air Room Air 08/10/23 08/10/23 08/10/23 09:00 10:00 11:00 Pulse 75 73 72 B/P (MAP) 166/98 (121) 139/83 (99) 155/100 (126) Pulse Ox 98 98 98 O2 Delivery Room Air Room Air Room Air 08/09/23 23:59 Intake Total 0 ml Output Total 350 ml Balance -350 ml Capillary Refill : Less Than 3 Seconds Constitutional: AAO x 3, well-developed, well-nourished HEENT: EOMI, hearing is well preserved, oral hygience is good; No xanthelasmas are seen Respiratory: No accessory muscle use; chest expansion is symmetric, chest is bilaterally symmetric, other (good, bilat air entry) Cardiovascular: regular rate-rhythm, S1 and S2, systolic murmur (faint LANA at card basee) Gastrointestinal: No tender; soft; No guarding, No rebound; audible bowel sounds Extremities: No clubbing, No cyanosis, No significant edema Neurologic/Psychiatric: oriented x 3, grossly intact (moves all limbs equally) Skin: warm/dry; No cyanosis, No cool, No diaphoresis, No rash on exposed areas, No ulcerations on exposed areas Data Review Labs Laboratory Tests 08/09/23 17:52: White Blood Count 9.0, Red Blood Count 4.99, Hemoglobin 15.2, Hematocrit 45, Mean Corpuscular Volume 90, Mean Corpuscular Hemoglobin 31, Mean Corpuscular Hemoglobin Concent 34, Red Cell Distribution Width 12.7, Platelet Count 199, Mean Platelet Volume 9.6, Immature Granulocyte % (Auto) 0, Neutrophils (%) (Auto) 68, Lymphocytes (%) (Auto) 23, Monocytes (%) (Auto) 7, Eosinophils (%) (Auto) 1, Basophils (%) (Auto) 1, Neutrophils # (Auto) 6.1, Lymphocytes # (Auto) 2.1, Monocytes # (Auto) 0.6, Eosinophils # (Auto) 0.1, Basophils # (Auto) 0.1, Immature Granulocyte # (Auto) 0.0, Prothrombin Time 13.4, INR Comment 1.0, Activated Partial Thromboplast Time 25, D-Dimer 0.64H, Sodium Level 140, Potassium Level 3.9, Chloride Level 103, Carbon Dioxide Level 27, Anion Gap 10, Blood Urea Nitrogen 13, Creatinine 1.15, Estimat Glomerular Filtration Rate 69, BUN/Creatinine Ratio 11, Glucose Level 163H, Calcium Level 9.8, Corrected Calcium , Magnesium Level 2.2, Total Bilirubin 0.7, Aspartate Amino Transf (AST/SGOT) 30, Alanine Aminotransferase (ALT/SGPT) 42, Alkaline Phosphatase 58, Total Creatine Kinase 114, Creatine Kinase MB 1.4, Myoglobin 54.2, Troponin I < 0.028, B-Type Natriuretic Peptide 41.2, Total Protein 8.0, Albumin 4.6H, Amylase Level 81, Lipase 37 08/09/23 17:56: Glucometer 151H 08/09/23 21:29: Troponin I 0.388*H 08/10/23 02:54: White Blood Count 9.7, Red Blood Count 4.75, Hemoglobin 14.5, Hematocrit 43, Mean Corpuscular Volume 91, Mean Corpuscular Hemoglobin 31, Mean Corpuscular Hemoglobin Concent 34, Red Cell Distribution Width 12.7, Platelet Count 173, Mean Platelet Volume 10.0, Sodium Level 138, Potassium Level 4.0, Chloride Level 102, Carbon Dioxide Level 23, Anion Gap 13, Blood Urea Nitrogen 12, Creatinine 0.92, Estimat Glomerular Filtration Rate 91, BUN/Creatinine Ratio 13, Glucose Level 133H, Calcium Level 9.3, Magnesium Level 2.0, Troponin I 3.609*H, Phosphorus Level 3.1, Triglycerides Level 116, Cholesterol Level 138, LDL Cholesterol Direct 88, VLDL Cholesterol 23, HDL Cholesterol 40 08/10/23 10:21: Glucometer 129H Laboratory Tests 08/09/23 17:52 08/10/23 02:54 A/P-Cardiology Assessment/Admission Diagnosis ACS (NSTEMI) CAD - mild LCx stenosis on card cath of [address] Tyson H/o GERD H/o hyperlipidemia, treated with statin DM II Strong family history of heart disease Discussion and Recomendations * Treat with DAPT, bb, statin * Card cath recommended. We discussed the rationale, procedure, risks, benefits, potential complications, and alternatives of card cath (and possible ad hoc PCI) in detail. He understands and provides informed consent. * Further recs based on cath findings and hosp course STEVE HINDS MD FACP [facility] CCDS Aug 10, 2023 11:24
[2023-08-10] MEDS ORDERED: ENOXAPARIN 100 MG/1 ML SYRINGE ONE (11:44)
[2023-08-10] MEDS ORDERED: EPTIFIBATIDE BOLUS 20 ML IV ONE (11:59)
--- NOTE | 2023-08-10 12:08 | Tele-ICU Progress Note ---
Subjective Date Seen by a Provider: Aug 10, 2023 Time Seen by a Provider: 12:05 Subjective/Events-last exam (Tele-ICU Physician , Progress Note ) Service provided via interactive audio and video telecommunications E-CARE s te to a patient admitted to ICU bed in [facility]. Patient is seen today due to persistent need of ICU care Available chart/ vitals / labs / Images reviewed Video assessment done using teleICU camera, rest of exam as per RN He is a 68-year-old male with past medical history of mild coronary artery disease nonobstructive presented to the emergency room with a complaint of moderate to severe chest pain on and off. He is a CT angiogram of the chest is negative and he is a troponins first 1 was negative but second and third markedly elevated. EKG did not show any ST segment elevation. He is started on Lovenox, Plavix and aspirin. Consultation requested and he is a scheduled for a cardiac catheterization. Impression. 1. acute coronary syndrome possibly non-STEMI 2. Hyperlipidemia history 3. Type 2 diabetes mellitus 4. Strong family history of heart disease. Recommendations 1. Continue antiplatelet therapy, beta-blockers and statins 2. Cardiac catheterization as per cardiology. I am remotely monitoring this patient from Tele icu station in [place]. I am unable to do the bedside exam, and history/physical and pertinent information is taken from other notes in the computer and bedside staff. Certain portions of this document may have been dictated utilizing voice recognition technology such as Pix[employer]. Inherent to this technology, typogra phical and grammatical errors may exist. As much as I am diligent to identify and correct to these mistakes, some errors may remain in the document. Critical care time devoted to this patient today is approximately is-20 minutes.- Sepsis Event Evaluation Height, Weight, BMI Height: 5'10.00" Weight: 247lbs. 0.0oz. 112.454289vq; 32.83 BMI Method:Stated Exam Exam Patient acknowledged, consented, and participated in this virtual visit which was conducted using real time audio/video Vital Signs Date Time Temp Pulse Resp B/P (MAP) Pulse Ox O2 Delivery O2 Flow Rate FiO2 08/10/23 11:00 72 155/100 (126) 98 Room Air 08/10/23 10:00 73 139/83 (99) 98 Room Air 08/10/23 09:00 75 166/98 (121) 98 Room Air 08/10/23 08:00 96 Room Air 08/10/23 08:00 36.7 08/10/23 08:00 75 155/87 (105) 98 Room Air 08/10/23 07:00 70 08/10/23 07:00 70 154/91 (111) 96 Room Air 08/10/23 06:00 92 140/81 (100) 98 Room Air 08/10/23 05:00 69 152/94 (113) 95 Room Air 08/10/23 04:15 96 Room Air 08/10/23 04:00 66 170/81 (110) 96 Room Air 08/10/23 04:00 36.8 08/10/23 03:00 65 161/92 (115) 98 Room Air 08/10/23 02:00 89 170/92 (118) 95 Room Air 08/10/23 01:00 72 08/10/23 01:00 72 163/94 (117) 98 Room Air 08/10/23 00:00 64 150/87 (108) 95 Room Air 08/09/23 23:23 98 Room Air 08/09/23 23:00 63 164/91 (115) 96 Room Air 08/09/23 22:30 67 151/95 (113) 95 Room Air 08/09/23 22:00 69 151/90 (110) 95 Room Air 08/09/23 21:45 71 153/87 (109) 96 Room Air 08/09/23 21:30 75 151/87 (108) 99 Room Air 08/09/23 21:15 67 156/87 (110) 98 Room Air 08/09/23 21:00 73 154/89 (110) 100 Room Air 08/09/23 21:00 98 Room Air 08/09/23 20:45 35.9 69 159/90 (113) 100 Nasal Cannula 2.00 08/09/23 20:43 70 08/09/23 20:28 36.3 74 16 150/90 97 Nasal Cannula 2.00 08/09/23 17:46 97 Room Air 08/09/23 17:46 35.9 61 18 211/113 (145) Room Air I & O 08/10/23 07:00 Intake Total 100 ml Output Total 750 ml Balance -650 ml Height & Weight Height: 5'10.00" Weight: 247lbs. 0.0oz. 112.517216jl; 32.83 BMI Method:Stated General Appearance: Anxious Capillary Refill: Less Than 3 Seconds Results Lab Laboratory Tests 08/09/23 17:52 08/10/23 02:54 Assessment/Plan Assessment/Plan as above Critical Care: Critically Ill Patient Time spent with patient (mins): 20 ARMIDA BALDWIN MD Aug 10, 2023 12:07
[2023-08-10] MEDS ORDERED: ASPIRIN 81 MG CHEWABLE TABLET ONE ×2 (12:41→12:43)
[2023-08-10] MEDS ORDERED: PATIENT MAY USE OWN MEDS, ALL PO SCH (13:00)
[2023-08-10] MEDS ORDERED: NS IV 1000 ML 1,000 ML IV SCH (13:00)
--- NOTE | 2023-08-10 13:26 | Cardiac Cath Report ---
CARDIAC CATHETERIZATION DATE OF PROCEDURE: 08-10-23 INDICATION: ACS (NSTEMI) HISTORY: The patient is a 68 year old male admitted with ACS (NSTEMI) PROCEDURES PERFORMED: 1. Cor angio; 2. PCI to LCx OM; 3. iFR measurement in the mid LAD; 4. LHC and LV angio PROCEDURE DESCRIPTION: After informed consent and in the fasting state, left heart catheterization was performed through the R femoral artery utilizing a 6 Trin[place]adian system by percutaneous approach. JL4 for L cor angio; JR4 for R cor angio; pigtail for LHC and LV angio HEMODYNAMICS: LVEDP (post cor angio and intervention) 25 mmHg CORONARY ANGIOGRAPHY: * Left main coronary artery: Ok * Left anterior descending coronary artery: 50-60% mid with iFR 0.92 * Left circumflex coronary artery: Co-dominant. 50-60% mid vessel after origin of large OM. OM1 with 50% mid and 100% distal (culprit lesion with ic thrombus). Distal OM1 intervened on with reduction of stenosis to 0% residual and yazdanism of normal antegrade flow. Distal OMs are severely diseased and of narrow caliber (not amenable to intervention). * Right coronary artery: Co-dominant. Moderately ectatic and with diffuse moderate palque LV ANGIO ODONNELL projection only. Localized inferior hypokinesis. LVEF 50-55% PERCUTANEOUS CORONARY INTERVENTION TO LCX OM1 Guide: 6F EBU4 Wire: Choice Floppy Balloon: 2.0x15 Stent: Skypoint 2.25x15 Pre-PCI: 99-100% with FRANSISCO 0 Post- PCI: 0% with FRANSISCO 3 iFR MID-LAD Guide: 6F EBU4 Wire: OmniWire iFR: 0.92 IMPRESSION: 1. Left main coronary artery: Ok. Left anterior descending coronary artery: 50- 60% mid with iFR 0.92. Left circumflex coronary artery: Co-dominant. 50-60% mid vessel after origin of large OM. OM1 with 50% mid and 100% distal (culprit lesion with ic thrombus). Distal OM1 intervened on with reduction of stenosis to 0% residual and yazdanism of normal antegrade flow. Distal OMs are severely diseased and of narrow caliber. Right coronary artery: Co-dominant. Moderately ectatic and with diffuse moderate palque 2. LVEDP 25 mmHg 3. LVEF 50-55% 4. Localized inferior hypokinesis STEVE HINDS MD [facility] CCDS Aug 10, 2023 13:26
[2023-08-10] MEDS ORDERED: ENOXAPARIN 40 MG/0.4 ML SYRINGE SC SCH (18:00)
[2023-08-10] MEDS ORDERED: meTOprolol TARTRATE (IR) 25 MG TABLET PO SCH (21:00)
[2023-08-11 05:06] LABS: BASOPHILS % (AUTO) 0 % (0-10); EOSINOPHILS # (AUTO) 0.1 10^3/uL (0.0-0.3); EOSINOPHILS % (AUTO) 1 % (0-10); HEMATOCRIT 40 % (40-54); HEMOGLOBIN 13.9 g/dL (13.3-17.7); LYMPHOCYTES # (AUTO) 1.9 10^3/uL (1.0-4.0); LYMPHOCYTES % (AUTO) 19 % (12-44); MEAN CORPUSCULAR HEMOGLOBIN 31 pg (25-34); MEAN CORPUSCULAR HGB CONC 35 g/dL (32-36); MEAN CORPUSCULAR VOLUME 90 fL (80-99); MEAN PLATELET VOLUME 10.1 fL (9.0-12.2); MONOCYTES % (AUTO) 10 % (0-12); NEUTROPHILS % (AUTO) 69 % (42-75); PLATELET COUNT 197 10^3/uL (130-400); WHITE BLOOD COUNT 10.1 10^3/uL (4.3-11.0)
[2023-08-11 05:17] LABS: POTASSIUM 3.8 MMOL/L (3.6-5.0)
[2023-08-11 05:18] LABS: CALCIUM 9.3 MG/DL (8.5-10.1)
[2023-08-11 05:23] LABS: CREATININE SERUM 0.98 MG/DL (0.60-1.30)
[2023-08-11] MEDS: inSUlin ASPART 1 UNIT/0.01 ML (PER UNIT) SC SCH ×2 (05:24→11:08)
[2023-08-11] MEDS: NITROGLYCERIN 2% OINT 1 GM UNIT DOSE PACKET TOP SCH ×2 (05:48→12:01)
--- NOTE | 2023-08-11 07:13 | Discharge Summary ---
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 He underwent cardiac cath and had stent to his left circumflex by Dr. Mcclellan. He was started on dual antiplatelet therapy. Following his procedure his symptoms were completely resolved and he was up ambulating without any difficulty or shortness of breath. He was discharged home in stable improved condition to follow-up with Dr. Gutierrez and with his primary care physician Dr. Ortiz. Labs (last 24 hrs) Laboratory Tests 08/10/23 10:21: Glucometer 129H 08/10/23 15:48: Glucometer 112H 08/10/23 20:18: Glucometer 132H 08/11/23 04:40: White Blood Count 10.1, Red Blood Count 4.46, Hemoglobin 13.9, Hematocrit 40, Mean Corpuscular Volume 90, Mean Corpuscular Hemoglobin 31, Mean Corpuscular Hemoglobin Concent 35, Red Cell Distribution Width 12.9, Platelet Count 197, Mean Platelet Volume 10.1, Immature Granulocyte % (Auto) 0, Neutrophils (%) (Auto) 69, Lymphocytes (%) (Auto) 19, Monocytes (%) (Auto) 10, Eosinophils (%) (Auto) 1, Basophils (%) (Auto) 0, Neutrophils # (Auto) 7.0, Lymphocytes # (Auto) 1.9, Monocytes # (Auto) 1.0, Eosinophils # (Auto) 0.1, Basophils # (Auto) 0.0, Immature Granulocyte # (Auto) 0.0, Sodium Level 136, Potassium Level 3.8, Chloride Level 103, Carbon Dioxide Level 21, Anion Gap 12, Blood Urea Nitrogen 12, Creatinine 0.98, Estimat Glomerular Filtration Rate 84, BUN/Creatinine Ratio 12, Glucose Level 130H, Calcium Level 9.3, Magnesium Level 2.0 Patient resulted labs reviewed. Pending Labs Laboratory Tests 08/11/23 04:40: White Blood Count 10.1, Red Blood Count 4.46, Hemoglobin 13.9, Hematocrit 40, Mean Corpuscular Volume 90, Mean Corpuscular Hemoglobin 31, Mean Corpuscular Hemoglobin Concent 35, Red Cell Distribution Width 12.9, Platelet Count 197, Mean Platelet Volume 10.1, Immature Granulocyte % (Auto) 0, Neutrophils (%) (Auto) 69, Lymphocytes (%) (Auto) 19, Monocytes (%) (Auto) 10, Eosinophils (%) (Auto) 1, Basophils (%) (Auto) 0, Neutrophils # (Auto) 7.0, Lymphocytes # (Auto) 1.9, Monocytes # (Auto) 1.0, Eosinophils # (Auto) 0.1, Basophils # (Auto) 0.0, Immature Granulocyte # (Auto) 0.0, Sodium Level 136, Potassium Level 3.8, Chloride Level 103, Carbon Dioxide Level 21, Anion Gap 12, Blood Urea Nitrogen 12, Creatinine 0.98, Estimat Glomerular Filtration Rate 84, BUN/Creatinine Ratio 12, Glucose Level 130, Calcium Level 9.3, Magnesium Level 2.0 Discussion & Recommendations Discharge Planning: >30 minutes discharge planning Discharge Home Medications: Active Scripts Active Metoprolol Succinate 25 Mg Tab.er.24h 25 Mg PO DAILY Reported Mounjaro (Tirzepatide) 7.5 Mg/0.5 Ml Pen.injctr 7.5 Mg SQ UD Farxiga (Dapagliflozin Propanediol) 10 Mg Tablet 10 Mg PO UD Atorvastatin Calcium 40 Mg Tablet 40 Mg PO UD Doxycycline Hyclate 100 Mg Capsule 100 Mg PO UD Losartan Potassium 50 Mg Tablet 50 Mg PO UD Dexilant (Dexlansoprazole) 60 Mg Cap.dr.bp 60 Mg PO UD Ventolin Hfa (Albuterol Sulfate) 1 Puff Puff 2 Puff INH Q4H PRN Instructions to patient/family Please see electronic discharge instructions given to patient. Copy Copies To 1: DERICK ORTIZ DO Problem Qualifiers (1) Diabetes: Diabetes mellitus type: type 2 Diabetes mellitus long-term insulin use: without long-term use Diabetes mellitus complication status: without complication Qualified Codes: E11.9 - Type 2 diabetes mellitus without complications (2) GERD (gastroesophageal reflux disease): Esophagitis presence: esophagitis presence not specified Qualified Codes: K21.9 - Gastro-esophageal reflux disease without esophagitis (3) Chest pain: Chest pain type: chest pain due to myocardial ischemia Ischemic chest pain type: stable angina pectoris Qualified Codes: I20.89 - Other forms of angina pectoris SOTO JEFFERSON MD Aug 11, 2023 07:13
--- NOTE | 2023-08-11 07:16 | Discharge Inst-Simple/Standard ---
Discharge Inst-Standard Discharge Medications New, Converted or Re-Newed RX: Transmitted to Pharmacy Patient Instructions/Follow Up Plan of Care/Instructions/FU: Please continue to take your medications as written. Please follow up with your primary care doctor to follow up this hospital stay. Activity as Tolerated: Yes Discharge Diet: Cardiac Diet Return to The Hospital For: Chest pain, shortness of breath, fever, weakness, if you feel you are getting worse. SOTO JEFFERSON MD Aug 11, 2023 07:16
[2023-08-11] MEDS: NS IV 1000 ML 1,000 ML IV SCH (07:46)
[2023-08-11 08:07] VITALS: BP 95/61
[2023-08-11] MEDS ORDERED: ASPIRIN 81 MG CHEWABLE TABLET PO SCH (09:00)
[2023-08-11] MEDS ORDERED: CLOPIDOGREL 75 MG TABLET PO SCH (09:00)
[2023-08-11 12:00] VITALS: BP 100/68
[2023-08-11] MEDS ORDERED: CLOP75TA28 PO (13:21)
[2023-08-11] MEDS ORDERED: ASPI81TA64 PO (13:21)
[2023-08-11 14:06] VITALS: BP 109/70
--- NOTE | 2023-08-11 14:27 | Progress Note - Cardiology ---
Cardiology SOAP Progress Note Subjective: No cp or palp or syncope or shortness of breath No groin or leg discomfort No n/v/d No focal weakness Wishes to go home Objective: I&O/Vital Signs 08/11/23 08/11/23 08/11/23 08/11/23 03:53 04:00 07:00 08:00 Temp 36.8 Pulse 90 87 B/P (MAP) 99/68 (78) Pulse Ox 97 98 O2 Delivery Room Air Room Air 08/11/23 08/11/23 08/11/23 08/11/23 08:07 12:00 13:50 14:06 Temp 36.5 36.4 36.4 Pulse 90 76 70 Resp 16 22 22 B/P (MAP) 95/61 (72) 100/68 (79) 109/70 (83) Pulse Ox 97 97 94 O2 Delivery Room Air Room Air Room Air 08/11/23 00:00 Intake Total 100 ml Output Total 925 ml Balance -825 ml Weight (Pounds): 247 Weight (Ounces): 0.0 Weight (Calculated Kilograms): [id number] Constitutional: AAO x 3, well-developed, well-nourished Respiratory: No accessory muscle use; chest expansion is symmetric, chest is bilaterally symmetric, other (good, bilat air entry) Cardiovascular: regular rate-rhythm, S1 and S2, systolic murmur (faint LANA at card basee) Gastrointestional: No tender; soft; No guarding, No rebound; audible bowel sounds Extremities: No clubbing, No cyanosis, No significant edema Neurologic/Psychiatric: oriented x 3, grossly intact (moves all limbs equally) Skin: warm/dry; No cyanosis, No cool, No diaphoresis, No rash on exposed areas, No ulcerations on exposed areas Results/Procedures: Labs Laboratory Tests 08/10/23 15:48: Glucometer 112H 08/10/23 20:18: Glucometer 132H 08/11/23 04:40: White Blood Count 10.1, Red Blood Count 4.46, Hemoglobin 13.9, Hematocrit 40, Mean Corpuscular Volume 90, Mean Corpuscular Hemoglobin 31, Mean Corpuscular Hemoglobin Concent 35, Red Cell Distribution Width 12.9, Platelet Count 197, Mean Platelet Volume 10.1, Immature Granulocyte % (Auto) 0, Neutrophils (%) (Auto) 69, Lymphocytes (%) (Auto) 19, Monocytes (%) (Auto) 10, Eosinophils (%) (Auto) 1, Basophils (%) (Auto) 0, Neutrophils # (Auto) 7.0, Lymphocytes # (Auto) 1.9, Monocytes # (Auto) 1.0, Eosinophils # (Auto) 0.1, Basophils # (Auto) 0.0, Immature Granulocyte # (Auto) 0.0, Sodium Level 136, Potassium Level 3.8, Chloride Level 103, Carbon Dioxide Level 21, Anion Gap 12, Blood Urea Nitrogen 12, Creatinine 0.98, Estimat Glomerular Filtration Rate 84, BUN/Creatinine Ratio 12, Glucose Level 130H, Calcium Level 9.3, Magnesium Level 2.0 Microbiology 08/09/23 MRSA Screen - Final, Complete MRSA not isolated Laboratory Tests 08/09/23 17:52 08/10/23 02:54 08/11/23 04:40 A/P: Assessment: ACS (NSTEMI) treated with PCI (see below) CAD - mild LCx stenosis on card cath of [address] Tyson - Last card cath on 08/10/23: Left main coronary artery: Ok. Left anterior descending coronary artery: 50-60% mid with iFR 0.92. Left circumflex coronary artery: Co-dominant. 50-60% mid vessel after origin of large OM. OM1 with 50% mid and 100% distal (culprit lesion with ic thrombus). Distal OM1 intervened on with reduction of stenosis to 0% residual and congregation of normal antegrade flow. Distal OMs are severely diseased and of narrow caliber. Right coronary artery: Co-dominant. Moderately ectatic and with diffuse moderate palque LVEDP 25 mmHg. LVEF 50-55%. Localized inferior hypokinesis H/o GERD H/o hyperlipidemia, treated with statin DM II Strong family history of heart disease Plan: * Treat with DAPT, bb, statin * ARB held because of low normal bp * Advised f/u with pcp regarding treatment of DM II * Cardiac f/u with Dr Tyson * I again went of over his cath findings with him and we discussed management of CAD and risk factors. He and his had several questions that I answered in detail * Advised to report to ER for any recurrence of symptoms or new symptoms * Advised compliance with STEVE Vital MD FACP FAC CCDS Aug 11, 2023 14:26
== END 2023-08-11 13:40 | disposition home or self-care (01) ==
LOC: EDUNIT# 17:44 → ER 17:47 → ICU 20:18 → UNDOADMOB 20:18 → INTOOBSV 20:18 → ICU 20:51 → CSD 08-10 16:48 → UNDODISOB 08-11 13:40
PROVIDERS: ADMIT Family Medicine; ATTEND Family Medicine
DX: I25.10 Atherosclerotic heart disease of native coronary artery without angina pectoris (principal); E11.9 Type 2 diabetes mellitus without complications; K21.9 Gastro-esophageal reflux disease without esophagitis; G47.33 Obstructive sleep apnea (adult) (pediatric); R07.9 Chest pain, unspecified; J45.909 Unspecified asthma, uncomplicated; I21.A1 Myocardial infarction type 2; I16.0 Hypertensive urgency; Z79.899 Other long term (current) drug therapy
CPT/HCPCS: 71045; 71275; 80048 ×2; 80053; 80061; 82150; 82550; 82553; 82947 ×2; 83036; 83690; 83735 ×3; 83874; 83880; 84100; 84484 ×2; 85025 ×2; 85027; 85379; 85610; 85730; 87081; 93005 ×2; 93041; 93458; 93571; 96372; 96374; 96375; 96376; 99284; C1725; C1769 ×2; C1874; C1887; C1894; C9600; G0378 ×2; 36415

== ENCOUNTER 2023-09-11 05:52 | Outpatient (CLI) | payer OTHER ==
[~2023-09-11] VITALS: Ht 175.3 cm; Wt 97.7 kg
[~2023-09-11 05:52] MED LIST changes: +ASPI81TA64 PO; +CLOP75TA28 PO
[2023-09-11] MEDS ORDERED: MULT-1136 PO (16:09)
[2023-09-11] MEDS ORDERED: TIRZ15PE SQ (16:09)
== END 2023-09-11 16:17 | disposition home or self-care (01) ==
LOC: PREOP 05:52
PROVIDERS: ATTEND Specialist
DX: Z01.818 Encounter for other preprocedural examination (principal)

== ENCOUNTER 2023-09-13 09:20 | Day surgery (SDC) | payer OTHER ==
[~2023-09-13] VITALS: Ht 175 cm; Wt 97.7 kg
[~2023-09-13 09:20] MED LIST changes: +MULT-1136 PO; +TIRZ15PE SQ
[2023-09-13] MEDS ORDERED: TIMOLOL 0.5% (CATARACTS) 0.3 ML BTL OU PRN (10:00)
[2023-09-13] MEDS ORDERED: LIDOCAINE PF 1% 2 ML VIAL IR PRN (10:00)
[2023-09-13] MEDS ORDERED: MOXIFLOXACIN OPHTH SOLN 5 MG/ML 0.5 ML SYRINGE OP ONE (10:00)
[2023-09-13] MEDS ORDERED: POVIDONE IODINE OPHTH SOLN 5% 30 ML OP ONE (10:00)
[2023-09-13] MEDS: TETRACAINE 0.5% OPHTH SOLN 5 ML BTL OU PRN ×4 (10:03→10:23)
[2023-09-13] MEDS ORDERED: MIDAZOLAM INJ 2 MG/2 ML VIAL ONE (10:04)
[2023-09-13 10:05] VITALS: BP 138/79
[2023-09-13] MEDS: TROPICAMIDE 1% OPH SOLN (MYDRIACYL) 15 ML BTL OP SCH ×3 (10:13→10:23)
[2023-09-13] MEDS: PHENYLEPHRINE 10% OPHTH SOLN 5 ML BTL OU SCH ×3 (10:13→10:23)
--- NOTE | 2023-09-13 10:38 | Ophthalmologist Pre-Op Note ---
Pre-Operative Progress Note H&P Reviewed The H&P was reviewed, patient examined and no changes noted. Date H&P Reviewed: Sep 13, 2023 Time H&P Reviewed: 10:38 Pre-Op Dx Cataract, Right Eye HALEY NUNEZ MD Sep 13, 2023 10:38
--- NOTE | 2023-09-13 11:00 | Ophthalmology Operative Report ---
Cataract removal/placement IOL PREOPERATIVE DIAGNOSIS: Cataract Right Eye POSTOPERATIVE DIAGNOSIS: Cataract Right Eye PROCEDURE: Cataract removal and placement of posterior chamber implant, right eye SURGEON: Desean Nunez ANESTHESIA: Topical with sedation COMPLICATIONS: None ESTIMATED BLOOD LOSS: Minimal DESCRIPTION OF PROCEDURE: After proper informed consent was obtained, the patient, a 68 male, was taken to the Operating Room and the right eye was anesthetized with tetracaine. The right eye was then prepped and draped in the usual manner. A wire lid speculum was placed. A paracentesis was made at the left hand position. Preservative free lidocaine was injected into the anterior chamber followed by viscoelastic. A clear corneal incision was made in the temporal position. A capsulorrhexis was preformed and the central nuclear and cortical material were removed. The posterior capsule was polished and Theodore 21.0 [id number] IOL was placed into the capsular bag. The residual viscoelastic was aspirated and balanced saline solution was injected into the anterior chamber. Moxifloxacin was injected into the anterior chamber. The wound was checked and found to be water tight. The patient tolerated the procedure well without complications. DESEAN NUNEZ MD Sep 13, 2023 11:00
[2023-09-13 11:10] VITALS: BP 137/82
--- NOTE | 2023-09-13 12:55 | Anesthesia-General Post-Op ---
MAC Patient Condition Mental Status/LOC: Same as Preop Cardiovascular: Satisfactory Nausea/Vomiting: Absent Respiratory: Satisfactory Pain: Controlled Complications: Absent Post Op Complications Complications None Follow Up Care/Instructions Patient Instructions None needed. Anesthesiology Discharge Order Discharge Order Patient was doing well after the procedure with no complaints, stable vital signs, no apparent adverse anesthesia problems. No complications reported per nursing. SIMONE HUMPHRIES DO Sep 13, 2023 12:55
== END 2023-09-13 11:12 | disposition home or self-care (01) ==
LOC: SDC 09:20
PROVIDERS: ATTEND Specialist
DX: E11.36 Type 2 diabetes mellitus with diabetic cataract (principal); H25.9 Unspecified age-related cataract; Z79.85 Long-term (current) use of injectable non-insulin antidiabetic drugs
CPT/HCPCS: 66984; 82947; V2632